=== PATIENT | female | born 1985 | race Caucasian/White ===

== ENCOUNTER 2018-12-20 08:11 | Emergency (ER) | payer OTHER ==
--- NOTE | 2018-12-20 09:14 | ED ---
GI/ HPI - HPI Summary HPI Summary: A 33 y/o female presents to [facility] with a chief complaint of heavy vaginal bleeding for the past two days. She reports that her period started one week ago and that it was light in the beginning but two days ago her bleeding became more heavy, She claims that this morning her pad was soaked and she was bleeding clots that ended up in the toilet and on her floor. She reports that her blood clots have been getting larger. She claims that on 11/29/18 she had an ultrasound at her OBGYN in [place] and was told that her lining was thick. She wanted to see her OBGYN again in three months because she wanted to try to make lifestyle changes before a biopsy. She reports losing 18 pounds this month. She denies abdominal pain, claiming that she isnt really cramping. Per triage note she also denies N/V but c/o weakness. At triage she rated her pain as a 0/10 in severity. She reports that one year ago her testosterone was high. She claims that she is familiar with a heavy period, but this is way heavier than usual. - History of Current Complaint Chief Complaint: EDVaginalBleeding Time Seen by Provider: 12/20/18 08:55 Stated Complaint: HEAVY VAGINAL BLEEDING WORSE THAN NORMAL PER PT Hx Obtained From: Patient Onset/Duration: Started Days Ago, Still Present Timing: Constant, Lasting Days Severity: Mild Current Severity: None Vaginal Bleeding Description: Clots Pain Intensity: 0 Location of Pain: None Associated Signs and Symptoms: Positive: Weakness. Negative: Nausea, Vomiting, Fever, Abdominal Pain - Allergy/Home Medications Allergies/Adverse Reactions: Allergies Allergy/AdvReac Type Severity Reaction Status Date / Time No Known Allergies Allergy Verified 12/20/18 08:17 Home Medications: Home Medications Multivitamin [One-Daily Multi-Vitamin] 1 tab PO DAILY 12/20/18 [History Confirmed 12/20/18] PMH/Surg Hx/FS Hx/Imm Hx Endocrine/Hematology History: Denies: Hx Diabetes Cardiovascular History: Denies: Hx Hypertension - Surgical History Surgery Procedure, Year, and Place: D&C 2016 Infectious Disease History: No Infectious Disease History: Denies: Traveled Outside the [place] in Last 30 Days - Family History Known Family History: Positive: Cardiac Disease - father, Hypertension - father Negative: Diabetes - Social History Alcohol Use: Occasionally Substance Use Type: Reports: None Smoking Status (MU): Never Smoked Tobacco Review of Systems Negative: Fever Negative: Abdominal Pain, Vomiting, Nausea Positive: other - positive: heavy vaginal bleeding All Other Systems Reviewed And Are Negative: Yes Physical Exam - Summary Physical Exam Summary: Appearance: The patient is well-nourished in no acute distress and in no acute pain. Skin: The skin is warm and dry and skin color reflects adequate perfusion. HEENT: The head is normocephalic and atraumatic. The pupils are equal and reactive. The conjunctivae are clear and without drainage. Nares are patent and without drainage. Mouth reveals moist mucous membranes and the throat is without erythema and exudate. The external ears are intact. The ear canals are patent and without drainage. The tympanic membranes are intact. Neck: The neck is supple with full range of motion and non-tender. There are no carotid bruits. There is no neck vein distension. Respiratory: Chest is non-tender. Lungs are clear to auscultation and breath sounds are symmetrical and equal. Cardiovascular: Heart is regular rate and rhythm. There is no murmur or rub auscultated. There is no peripheral edema and pulses are symmetrical and equal. Abdomen: The abdomen is soft and non-tender. There are normal bowel sounds heard in all four quadrants and there is no organomegaly palpated. Musculoskeletal: There is no back tenderness noted. Extremities are non-tender with full range of motion. There is good capillary refill. There is no peripheral edema or calf tenderness elicited. Neurological: Patient is alert and oriented to person, place and time. The patient has symmetrical motor strength in all four extremities. Cranial nerves are grossly intact. Deep tendon reflexes are symmetrical and equal in all four extremities. Psychiatric: The patient has an appropriate affect and does not exhibit any anxiety or depression. Triage Information Reviewed: Yes Vital Signs On Initial Exam: Initial Vitals Temp Pulse Resp BP Pulse Ox 97.5 F 102 18 139/94 100 12/20/18 08:12 12/20/18 08:12 12/20/18 08:12 12/20/18 08:12 12/20/18 08:12 Vital Signs Reviewed: Yes Diagnostics - Vital Signs Vital Signs Temp Pulse Resp BP Pulse Ox 12/20/18 09:01 84 145/101 100 12/20/18 09:00 83 97 12/20/18 08:42 95 99 12/20/18 08:12 97.5 F 102 18 139/94 100 - Laboratory Result Diagrams: 12/20/18 10:02 12/20/18 10:02 Lab Statement: Any lab studies that have been ordered have been reviewed, and results considered in the medical decision making process. Re-Evaluation - Re-Evaluation First Eval Re-Evaluation Time: 10:58 Change: Improved Comment: Informed patient of plan of follow up with Dr. Frank and the patient is agreeable. GIGU Course/Dx - Course Course Of Treatment: Ms. Thomas presented with a history of heavy dysmenorrhea but a concern that the last couple of days have been heavier than normal with multiple clots. She has seen a specialist up in [place] a few weeks ago. She was nontoxic in appearance is stable vital signs and labs were obtained and revealed no anemia. I spoke with up in [place] who recommended discharge and close follow-up. - Diagnoses Provider Diagnoses: Dysfunctional uterine bleeding - Physician Notifications Discussed Care Of Patient With: Debbie Frank MD Time Discussed With Above Provider: 10:58 Instructed by Provider To: Other - She agreed to have the patient follow up with her as an outpatient Discharge - Sign-Out/Discharge Documenting (check all that apply): Patient Departure - DC Patient Received Moderate/Deep Sedation with Procedure: No - Discharge Plan Condition: Stable Disposition: HOME Patient Education Materials: Dysfunctional Uterine Bleeding (ED) Referrals: Monika ZAVALA,Debbie French [Medical Doctor] - Elle ZAVALA,Mia Johnson [Primary Care Provider] - - Billing Disposition and Condition Condition: STABLE Disposition: Home - Attestation Statements Document Initiated by Scribe: Yes Documenting Scribe: Jose Kan Provider For Whom Alexia is Documenting (Include Credential): Nick Pérez MD Scribe Attestation: I, Jose Kan, scribed for Nick Pérez MD on 12/20/18 at 1358. Scribe Documentation Reviewed: Yes Provider Attestation: The documentation as recorded by the Jose hahn accurately reflects the service I personally performed and the decisions made by me, Nick Pérez MD Status of Scribe Document: Viewed
[2018-12-20 09:56] LABS: Urine Appearance Cloudy; Urine Bacteria Absent (Absent); Urine Bilirubin Negative (Negative); Urine Blood 3+ (Negative); Urine Color Red; Urine Glucose Negative (Negative); Urine Ketones 1+ (Negative); Urine Nitrite Negative (Negative); Urine Protein 2+(100 mg/dL) (Negative); Urine Red Blood Cell 3+(>10/hpf) (Absent); Urine Specific Gravity 1.024 (1.010-1.030); Urine Urobilinogen Negative (Negative); Urine White Blood Cell 1+(6-10/hpf) (Absent)
[2018-12-20 10:12] LABS: ABS Basophils 0.1 10^3/ul (0-0.2); ABS Eosinophils 0.1 10^3/ul (0-0.6); ABS Monocytes 0.7 10^3/ul (0-0.8); ABS Neutrophils 4.5 10^3/ul (1.5-7.7); ABS Nucleated RBC 0 10^3/ul; Eosinophil % 1.8 %; Hematocrit 38 % (33-41); Hemoglobin 12.4 g/dL (12.0-16.0); Lymphocyte % 27.3 %; Mean Corpuscular HGB Conc 33 g/dL (31-36); Mean Corpuscular Hemoglobin 27 pg (27-31); Mean Corpuscular Volume 83 fL (80-97); Mean Platelet Volume 7.9 fL (7.4-10.4); Nucleated Red Blood Cells % 0; Platelet Count 362 10^3/uL (150-450); Red Blood Count 4.53 10^6 /uL (3.70-4.87); Red Cell Distribution Width 15 % (10.5-15); White Blood Count 7.4 10^3/uL (3.5-10.8)
[2018-12-20 10:27] LABS: Activated Partial Thrombo Time 30.1 seconds (26.0-36.3); INR 1.02 (0.77-1.02)
[2018-12-20 10:38] LABS: ALT 28 U/L (7-52); AST 24 U/L (13-39); Albumin 4.2 g/dL (3.2-5.2); Albumin/Globulin Ratio 1.6 (1-3); Alkaline Phosphatase 70 U/L (34-104); Anion Gap 9 mmol/L (2-11); BUN/Creatinine Ratio 9.6 (8-20); Blood Urea Nitrogen 7 mg/dL (6-24); CO2 Carbon Dioxide 26 mmol/L (22-32); Calcium 9.1 mg/dL (8.6-10.3); Chloride 102 mmol/L (101-111); EGFR African American 110.4 (>60); EGFR Non-African American 91.3 (>60); Globulin 2.6 g/dL (2-4); Glucose 102 mg/dL (70-100); Potassium 3.8 mmol/L (3.5-5.0); Sodium 137 mmol/L (135-145); Total Protein 6.8 g/dL (6.4-8.9)
[2018-12-20 10:41] LABS: HCG Pregnancy < 0.60 mIU/mL
[2018-12-20 11:31] VITALS: BP 124/83
== END 2018-12-20 11:29 | disposition home or self-care (01) ==
LOC: ED 08:11
DX: N93.8 Other specified abnormal uterine and vaginal bleeding (principal); R53.1 Weakness
CPT/HCPCS: 36415; 80053; 81003; 81015; 83605; 84702; 85025; 85610; 85730; 87086; 99282

== ENCOUNTER 2019-05-31 08:13 | Emergency (ER) | payer OTHER ==
[2019-05-31 08:37] VITALS: BP 147/97
--- NOTE | 2019-05-31 10:09 | UC ---
Throat Pain/Nasal Sudarshan HPI - HPI Summary HPI Summary: 34 y/o female presents to the urgent care c/o sore throat and sinus congestion w / yellowish nasal discharge and moderate PND w/ productive cough for the past 2 days. Pt reports her children started w/ similar symptoms and were Rx antibiotics. Pt states last night she couldn't sleep due to cough and a lot of PND. This morning when she woke up she noticed her uvula was red and swollen. Pt states pain w/ swallowing is 4/10. Pt states subjective fever the first day. pt denies PONCE, dizziness, chest pain, abdominal pain, N/v/d. - History of Current Complaint Chief Complaint: UCGeneralIllness Stated Complaint: SORE THROAT COUGH RUNNY NOSE Time Seen by Provider: 05/31/19 09:13 Hx Obtained From: Patient Hx Last Menstrual Period: 05/11/19 ?: No Onset/Duration: Gradual Onset, Lasting Days - 2 days, Still Present Severity: Mild Pain Intensity: 4 Pain Scale Used: 0-10 Numeric Cough: Productive - yellowish PND Associated Signs & Symptoms: Positive: Sinus Discomfort, Nasal Discharge - yellowish, Fever - first day of symptoms. Negative: Dysphagia, Wheezing - Epiglottits Risk Factors Epiglottis Risk Factors: Negative - Allergies/Home Medications Allergies/Adverse Reactions: Allergies Allergy/AdvReac Type Severity Reaction Status Date / Time vancomycin Allergy Intermediate Flushing Verified 05/31/19 08:37 PMH/Surg Hx/FS Hx/Imm Hx Previously Healthy: Yes - Pt denies PMHX - Surgical History Surgical History: Yes Surgery Procedure, Year, and Place: D&C 2016 - Family History Known Family History: Positive: Cardiac Disease - father, Hypertension - father Negative: Diabetes - Social History Occupation: Employed Full-time Lives: With Family Alcohol Use: Occasionally Substance Use Type: None Smoking Status (MU): Never Smoked Tobacco Review of Systems All Other Systems Reviewed And Are Negative: Yes Constitutional: Positive: Chills Skin: Positive: Negative Eyes: Positive: Negative ENT: Positive: Sore Throat, Nasal Discharge - yellowish, Sinus Congestion, Sinus Pain/Tenderness, Other - moderate yellowish PND Respiratory: Positive: Cough - productive w/ yellowish phlegm Cardiovascular: Positive: Negative Gastrointestinal: Positive: Negative Genitourinary: Positive: Negative Motor: Positive: Negative Neurovascular: Positive: Negative Musculoskeletal: Positive: Negative Neurological: Positive: Negative Psychological: Positive: Negative Is Patient Immunocompromised?: No Physical Exam - Summary Physical Exam Summary: VITAL SIGNS: Reviewed. GENERAL: Patient is a well developed and nourished who is sitting comfortable in the examining table. Patient is not in any acute respiratory distress. HEAD AND FACE: No signs of trauma. No ecchymosis, hematomas or skull depressions. No sinus tenderness. EYES: PERRLA, EOMI x 2, No injected conjunctiva, no nystagmus. No photophobia. EARS: Hearing grossly intact. Ear canals and tympanic membranes are within normal limits. MOUTH: Positive pharynx with erythema, exudates, palatal petechiae. No tonsills. mildly swollen Uvula in midline w/ clear PND. NECK: Supple, trachea is midline, Positive anterior cervical lymphadenopathy, no JVD, no carotid bruit, no c-spine tenderness, neck with full ROM. No meningeal signs, no Kernig's or brudzinskis signs. CHEST: Symmetric, no tenderness at palpation LUNGS: Clear to auscultation bilaterally. No wheezing or crackles. CVS: Regular rate and rhythm, S1 and S2 present, no murmurs or gallops appreciated. ABDOMEN: Soft, non-tender. No signs of distention. No rebound no guarding, and no masses palpated. Bowel sounds are normal. EXTREMITIES: FROM in all major joints, no edema, no cyanosis or clubbing. NEURO: Alert and oriented x 3. No acute neurological deficits. Speech is normal and follows commands. SKIN: Dry and warm Triage Information Reviewed: Yes Vital Signs: Initial Vital Signs Temp 98.1 F 05/31/19 08:34 Pulse 89 05/31/19 08:34 Resp 18 05/31/19 08:34 BP 147/97 05/31/19 08:34 Pulse Ox 100 05/31/19 08:34 Throat Pain/Nasal Course/Dx - Course Course Of Treatment: 34 y/o female presents to the urgent care c/o sore throat and sinus congestion w / yellowish nasal discharge and moderate PND w/ productive cough for the past 2 days. Pt reports her children started w/ similar symptoms and were Rx antibiotics. Pt states last night she couldn't sleep due to cough and a lot of PND. This morning when she woke up she noticed her uvula was red and swollen. Pt states pain w/ swallowing is 4/10. Pt states subjective fever the first day. pt denies PONCE, dizziness, chest pain, abdominal pain, N/v/d. Hx obtained. Pt w/ uvulitis and URI on examination. Rapid strep: negative. Pt Rx Prednisone PO and Flonase Nasal spray to alleviate swelling and sinus congestion as directed below. PT Advised to take Ibuprofen PO for pain and on hand washing to avoid spreading. Also advised to rest, eat well and avoid strenuous exercise. If symptoms do not improve or worsen advised to return to the urgent care or f/u with her PCP in 2-3 days for further evaluation and treatment. Pt' s BP is elevated today advised to decrease salt in diet, monitor BP and f/u with PCP for further management. D/C instructions explained. PT understood and agreed w/ plan of care. - Differential Dx/Diagnosis Differential Diagnosis/HQI/PQRI: Influenza, Laryngitis, Mononucleosis, Otitis Media, Pharyngitis, Tonsillitis, URI Provider Diagnosis: Uvulitis, Upper respiratory infection, Elevated BP without diagnosis of hypertension Discharge ED - Sign-Out/Discharge Documenting (check all that apply): Patient Departure - d/c home All imaging exams completed and their final reports reviewed: No Studies - Discharge Plan Condition: Stable Disposition: HOME Prescriptions: Fluticasone NASAL SPRAY 50MCG* [Flonase NASAL SPRAY 50MCG*] 2 spray BOTH NARES DAILY #1 btl predniSONE TAB* [Deltasone 20 MG TAB*] 20 mg PO DAILY #11 tab Patient Education Materials: Upper Respiratory Infection (ED), Uvulitis (ED) Referrals: Miriam Bruno MD [Primary Care Provider] - 3 Days Additional Instructions: 1- Please Take prednisone PO as directed to alleviate swelling, increase fluid intake and rest. avid strenuous exercise 2-Use Flonase as directed to help drain fluid. Also buy saline drops to clear sinuses 3-Take Ibuprofen PO q6-8hrs prn as directed after meals to alleviate pain and swelling. 4-Return to the clinic or PCP in 3 days if symptoms do not improve for further management and treatment 5-Your BP is elevated today. Please take your BP medications and decrease salt in your diet, monitor BP and if it continues to be elevated please f/u with your PCP for further management. If you develop chest pain, dizziness, visual disturbances, SOB, or severe PONCE please go immediately to the ER for further management - Billing Disposition and Condition Condition: STABLE Disposition: Home
== END 2019-05-31 10:45 | disposition home or self-care (01) ==
LOC: UCEAST 08:13
DX: K12.2 Cellulitis and abscess of mouth (principal); J06.9 Acute upper respiratory infection, unspecified; R03.0 Elevated blood-pressure reading, without diagnosis of hypertension
CPT/HCPCS: 87651; 99212; G0463

== ENCOUNTER 2019-06-29 20:56 | Emergency (ER) | payer OTHER ==
[2019-06-29 21:06] VITALS: BP 153/92
--- NOTE | 2019-06-29 22:12 | UC ---
Complaint Female HPI - HPI Summary HPI Summary: FOR THE PAST COUPLE OF DAYS PATIENT HAS HAD A WORSENING PAINFUL LESION ON HER RIGHT LABIA MINORA. ON THE WAY HERE IT SPONTANEOUSLY DRAINED WHAT THE PATIENT DESCRIBES FOUL-SMELLING BLOOD AND PUS. SHE AND HER ARE TRYING TO CONCEIVE AND SHE IS VERY CONCERNED ABOUT INFECTION. NO URINARY SX BUT WOULD LIKE TO BE CHECK FOR UTI. - History Of Current Complaint Chief Complaint: UCSkin Stated Complaint: SORE ON SKIN Time Seen by Provider: 06/29/19 21:22 Hx Obtained From: Patient, Family/Chemistry Intern - Hx Last Menstrual Period: 06/12/19 Onset/Duration: Gradual Onset, Lasting Days, Still Present Timing: Constant Severity Initially: Moderate Severity Currently: Moderate Pain Intensity: 5 Pain Scale Used: 0-10 Numeric Character: Sharp Aggravating Factor(s): Other - TOUCH Alleviating Factor(s): Nothing Associated Signs And Symptoms: Negative: Fever, Vaginal Bleeding/Discharge, Nausea - Allergies/Home Medications Allergies/Adverse Reactions: Allergies Allergy/AdvReac Type Severity Reaction Status Date / Time vancomycin Allergy Intermediate Flushing Verified 06/29/19 21:06 Home Medications: Home Medications 105/Iron/Folic AC/Dha [Prena1 True Combo Pack] 1 tab PO DAILY 06/29/19 [History Confirmed 06/29/19] PMH/Surg Hx/FS Hx/Imm Hx Previously Healthy: Yes - Surgical History Surgical History: Yes Surgery Procedure, Year, and Place: T&A. appendectomy. D&C - Family History Known Family History: Positive: Cardiac Disease - father, Hypertension - father Negative: Diabetes - Social History Alcohol Use: Rare Substance Use Type: None Smoking Status (MU): Never Smoked Tobacco Review of Systems All Other Systems Reviewed And Are Negative: Yes Constitutional: Positive: Negative Skin: Positive: Other - PAINFUL GENITAL LESION Respiratory: Positive: Negative Cardiovascular: Positive: Negative Gastrointestinal: Positive: Negative Genitourinary: Positive: Negative Physical Exam Triage Information Reviewed: Yes Appearance: Well-Appearing, No Pain Distress, Well-Nourished Vital Signs: Initial Vital Signs Temp 98.8 F 06/29/19 20:59 Pulse 100 06/29/19 20:59 Resp 18 06/29/19 20:59 BP 153/92 06/29/19 20:59 Pulse Ox 99 06/29/19 20:59 Laboratory Tests 06/29/19 22:17 POC Urine Color Yellow POC Urine Clarity Clear POC Urine pH 7.5 POC Ur Specif Breeden 1.025 POC Urine Protein Trace A POC Ur Glucose (UA) Negative POC Urine Ketones Negative POC Urine Blood Trace-intact A POC Urine Nitrite Negative POC Urine Bilirubin Negative POC Urine Urobilinogen 0.2 POC U Leukocyte Esteras Trace A Vital Signs Reviewed: Yes Eyes: Positive: Conjunctiva Clear ENT: Positive: Hearing grossly normal Neck: Positive: Supple Respiratory: Positive: No respiratory distress, No accessory muscle use Cardiovascular: Positive: Pulses Normal Abdomen Description: Positive: Soft Pelvic Exam: Positive: Lesions - TENDER LESION EXTERNAL RIGHT LABIA MINORA < 1CM. DRAINING BLOOD Musculoskeletal: Positive: No Edema Neurological: Positive: Alert Psychological: Positive: Age Appropriate Behavior Skin: Negative: Rashes Complaint Female Dx - Course Course Of Treatment: LESION ON PATIENT'S RIGHT LABIA MINORA DRAINED SPONTANEOUSLY ON THE WAY HERE TO THE URGENT CARE. ON EXAM IT DOES NOT APPEAR TO BE A BARTHOLIN'S. SWAB SENT FOR CULTURE. WILL GIVE KEFLEX TWICE DAILY FOR 10 DAYS. 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 URINE DIP UNREMARKABLE. ALSO SENT FOR CULTURE. PT DECLINES URINE HCG. - Differential Dx/Diagnosis Provider Diagnosis: Abscess of right genital labia Discharge ED - Sign-Out/Discharge Documenting (check all that apply): Patient Departure All imaging exams completed and their final reports reviewed: No Studies - Discharge Plan Condition: Stable Disposition: HOME Prescriptions: Cephalexin CAP* [Keflex 500 CAP*] 500 mg PO BID #18 cap Patient Education Materials: Abscess (ED) Referrals: Miriam Bruno MD [Primary Care Provider] - If Needed Additional Instructions: ON EXAM YOU HAVE AN ABSCESS OF YOUR RIGHT LABIA MINORA. THIS DRAINED SPONTANEOUSLY ON YOUR WAY HERE. TAKE THE KEFLEX TWICE DAILY FOR 10 DAYS. A CULTURE HAS BEEN SENT AND WE WILL CALL YOU IF YOUR MEDICATION NEEDS TO BE CHANGED. HOT SOAKS 3-4 TIMES DAILY. KEEP THE AREA CLEAN AND DRY. SEEK FOLLOW-UP IF YOU ARE NOT IMPROVING OVER THE NEXT SEVERAL DAYS. - Billing Disposition and Condition Condition: STABLE Disposition: Home
[2019-06-29] MEDS ORDERED: Cephalexin CAP* 500 MG PO ONE (22:16)
== END 2019-06-29 22:41 | disposition home or self-care (01) ==
LOC: UCEAST 20:56
DX: N76.4 Abscess of vulva (principal); Z88.1 Allergy status to other antibiotic agents
CPT/HCPCS: 81003; 87070; 87077; 87086; 99212; A9270-GY; G0463

== ENCOUNTER 2019-09-06 17:05 | Emergency (ER) | payer OTHER ==
[2019-09-06 18:59] LABS: ABS Basophils 0.1 10^3/ul (0-0.2); ABS Eosinophils 0.2 10^3/ul (0-0.6); ABS Lymphocytes 3.3 10^3/ul (1.0-4.8); ABS Monocytes 1.3 10^3/ul (0-0.8); ABS Neutrophils 11.4 10^3/ul (1.5-7.7); Eosinophil % 1.1 %; Hematocrit 41 % (35-47); Hemoglobin 13.7 g/dL (12.0-16.0); Lymphocyte % 20.5 %; Mean Corpuscular HGB Conc 33 g/dL (31-36); Mean Corpuscular Hemoglobin 29 pg (27-31); Mean Corpuscular Volume 87 fL (80-97); Mean Platelet Volume 7.7 fL (7.4-10.4); Platelet Count 418 10^3/uL (150-450); Red Blood Count 4.76 10^6 /uL (3.70-4.87); Red Cell Distribution Width 14 % (10-15); White Blood Count 16.3 10^3/uL (3.5-10.8)
[2019-09-06 19:13] LABS: ALT 15 U/L (7-52); AST 11 U/L (13-39); Albumin/Globulin Ratio 1.3 (1-3); Alkaline Phosphatase 64 U/L (34-104); Anion Gap 7 mmol/L (2-11); BUN/Creatinine Ratio 16.7 (8-20); Blood Urea Nitrogen 13 mg/dL (6-24); C Reactive Protein 13.47 mg/L (<8.01); CO2 Carbon Dioxide 25 mmol/L (22-32); Calcium 9.4 mg/dL (8.6-10.3); Chloride 104 mmol/L (101-111); EGFR African American 101.7 (>60); Globulin 3.2 g/dL (2-4); Glucose 99 mg/dL (70-100); Potassium 3.8 mmol/L (3.5-5.0); Sodium 136 mmol/L (135-145); Total Protein 7.2 g/dL (6.4-8.9)
--- NOTE | 2019-09-06 22:19 | ED ---
Shortness of Breath - HPI Summary HPI Summary: This pt is a 34 Y/O F presenting to [facility] with a CC of SOB that has been occurring since 09/04/19 when she sleeps. She states that after she falls asleep she has episodes of gasping for air and she has been unable to sleep. She states that last night when she was sitting on the couch she became SOB. She states that a week and a half ago she had one episode of gasping for air. She states that she had similar symptoms when she was diagnosed with bronchitis. She denies any fevers, cough, headaches, CP, and N/V. She states no alleviating factors. Her last period was August 07 and states that she is currently . Her GPA is a G4, P2, A1. She is currently at 4 weeks gestation. She states that her fathers side has a Hx of heart attacks and her mother has sleep apnea. - History of Current Complaint Chief Complaint: EDShortnessOfBreath Time Seen by Provider: 09/06/19 21:54 Hx Obtained From: Patient Onset/Duration: Sudden Onset, Lasting Days - 2, Still Present Timing: Intermittent Episodes Lasting: - States that the episodes occurr when she falls asleep Current Severity: None Dyspnea At: Other - sleeping Aggravating Factors: Recumbent Position Alleviating Factors: Nothing Associated Signs & Symptoms: Negative - fevers, cough, headaches, CP, and N/V. - Allergy/Home Medications Allergies/Adverse Reactions: Allergies Allergy/AdvReac Type Severity Reaction Status Date / Time vancomycin Allergy Intermediate Flushing Verified 06/29/19 21:06 PMH/Surg Hx/FS Hx/Imm Hx Previously Healthy: Yes Endocrine/Hematology History: Denies: Hx Diabetes, Hx Thyroid Disease Cardiovascular History: Denies: Hx Hypertension Respiratory History: Denies: Hx Asthma, Hx Chronic Obstructive Pulmonary Disease (COPD) GI History: Denies: Hx Ulcer - Cancer History Hx Chemotherapy: No Hx Radiation Therapy: No - Surgical History Surgical History: Yes Surgery Procedure, Year, and Place: T&A. appendectomy. D&C - Immunization History Immunizations Up to Date: Yes Infectious Disease History: No Infectious Disease History: Denies: Hx Hepatitis, Hx Human Immunodeficiency Virus (HIV), Traveled Outside the [place] in Last 30 Days - Family History Known Family History: Positive: Cardiac Disease - father, Hypertension - father Negative: Diabetes - Social History Occupation: Unemployed Lives: With Family Alcohol Use: Rare Hx Substance Use: No Substance Use Type: Reports: None Hx Tobacco Use: No Smoking Status (MU): Never Smoked Tobacco Review of Systems - ROS Summary Review of Systems Summary: Home Medications Medication Instructions Recorded Confirmed Type Cephalexin CAP* [Keflex 500 CAP*] 500 mg PO BID #18 cap 06/29/19 Rx 105/Iron/Folic AC/Dha 1 tab PO DAILY 06/29/19 06/29/19 History [Prena1 True Combo Pack] Negative: Fever Negative: Chest Pain Positive: Shortness Of Breath - while sleeping . Negative: Cough Negative: Vomiting, Nausea Negative: Headache All Other Systems Reviewed And Are Negative: Yes Physical Exam - Summary Physical Exam Summary: General: Well-developed, obese female. No acute distress. HEENT: Normocephalic, Atraumatic. Eyes: Conjuctiva normal, PERRL. Ears: TMs within normal limits. Nares: (-) discharge, (-) erythema. Oropharynx: Clear, mucous membranes moist, (-) exudates. Neck: Soft, FROM, (-) lymphadenopathy, (-) thyromegaly, (-) JVD. Cardiovascular: Normal sinus rhythm, (-) murmur. Lungs: Clear to auscultation bilaterally (-) wheezes, (-) rales, (-) rhonchi. Abdomen: Soft, non-tender, non-distended, (-) organomegaly, normal bowel sounds. Back: (-) CVA tenderness Extremities: No edema. Skin: Warm, dry, (-) rash. Neuro: Alert and oriented x3, no focal deficits. Psychiatric: anxious. affect normal. Triage Information Reviewed: Yes Vital Signs On Initial Exam: Initial Vitals Temp Pulse Resp BP Pulse Ox 97.5 F 96 18 128/104 100 09/06/19 17:12 09/06/19 17:12 09/06/19 17:12 09/06/19 17:12 09/06/19 17:12 Vital Signs Reviewed: Yes Procedures - Sedation Patient Received Moderate/Deep Sedation with Procedure: No Diagnostics - Vital Signs Vital Signs Temp Pulse Resp BP Pulse Ox 09/06/19 21:15 99.2 F 93 18 137/74 98 09/06/19 19:00 98.7 F 98 18 135/88 98 09/06/19 17:12 97.5 F 96 18 128/104 100 - Laboratory Lab Results: Lab Results 09/06/19 09/06/19 09/06/19 Range/Units 18:40 18:40 18:40 WBC 16.3 H (3.5-10.8) 10^3/uL RBC 4.76 (3.70-4.87) 10^6 /uL Hgb 13.7 (12.0-16.0) g/dL Hct 41 (35-47) % MCV 87 (80-97) fL MCH 29 (27-31) pg MCHC 33 (31-36) g/dL RDW 14 (10-15) % Plt Count 418 (150-450) 10^3/uL MPV 7.7 (7.4-10.4) fL Neut % (Auto) 69.8 % Lymph % (Auto) 20.5 % [place] % (Auto) 8.0 % Eos % (Auto) 1.1 % Baso % (Auto) 0.6 % Absolute Neuts (auto) 11.4 H (1.5-7.7) 10^3/ul Absolute Lymphs (auto) 3.3 (1.0-4.8) 10^3/ul Absolute Monos (auto) 1.3 H (0-0.8) 10^3/ul Absolute Eos (auto) 0.2 (0-0.6) 10^3/ul Absolute Basos (auto) 0.1 (0-0.2) 10^3/ul Absolute Nucleated RBC 0.0 10^3/ul Nucleated RBC % 0.0 Sodium 136 (135-145) mmol/L Potassium 3.8 (3.5-5.0) mmol/L Chloride 104 (101-111) mmol/L Carbon Dioxide 25 (22-32) mmol/L Anion Gap 7 (2-11) mmol/L BUN 13 (6-24) mg/dL Creatinine 0.78 (0.51-0.95) mg/dL Est GFR ( Amer) 101.7 (>60) Est GFR (Non-Af Amer) 84.0 (>60) BUN/Creatinine Ratio 16.7 (8-20) Glucose 99 (70-100) mg/dL Lactic Acid 1.0 (0.5-2.0) mmol/L Calcium 9.4 (8.6-10.3) mg/dL Total Bilirubin 0.20 (0.2-1.0) mg/dL AST 11 L (13-39) U/L ALT 15 (7-52) U/L Alkaline Phosphatase 64 (34-104) U/L Troponin I 0.00 (<0.03) ng/mL C-Reactive Protein 13.47 H (<8.01) mg/L Total Protein 7.2 (6.4-8.9) g/dL Albumin 4.0 (3.2-5.2) g/dL Globulin 3.2 (2-4) g/dL Albumin/Globulin Ratio 1.3 (1-3) Beta HCG, Quant mIU/mL Blood Type Antibody Screen 09/06/19 09/06/19 Range/Units 18:40 18:40 WBC (3.5-10.8) 10^3/uL RBC (3.70-4.87) 10^6 /uL Hgb (12.0-16.0) g/dL Hct (35-47) % MCV (80-97) fL MCH (27-31) pg MCHC (31-36) g/dL RDW (10-15) % Plt Count (150-450) 10^3/uL MPV (7.4-10.4) fL Neut % (Auto) % Lymph % (Auto) % [place] % (Auto) % Eos % (Auto) % Baso % (Auto) % Absolute Neuts (auto) (1.5-7.7) 10^3/ul Absolute Lymphs (auto) (1.0-4.8) 10^3/ul Absolute Monos (auto) (0-0.8) 10^3/ul Absolute Eos (auto) (0-0.6) 10^3/ul Absolute Basos (auto) (0-0.2) 10^3/ul Absolute Nucleated RBC 10^3/ul Nucleated RBC % Sodium (135-145) mmol/L Potassium (3.5-5.0) mmol/L Chloride (101-111) mmol/L Carbon Dioxide (22-32) mmol/L Anion Gap (2-11) mmol/L BUN (6-24) mg/dL Creatinine (0.51-0.95) mg/dL Est GFR ( Amer) (>60) Est GFR (Non-Af Amer) (>60) BUN/Creatinine Ratio (8-20) Glucose (70-100) mg/dL Lactic Acid (0.5-2.0) mmol/L Calcium (8.6-10.3) mg/dL Total Bilirubin (0.2-1.0) mg/dL AST (13-39) U/L ALT (7-52) U/L Alkaline Phosphatase (34-104) U/L Troponin I (<0.03) ng/mL C-Reactive Protein (<8.01) mg/L Total Protein (6.4-8.9) g/dL Albumin (3.2-5.2) g/dL Globulin (2-4) g/dL Albumin/Globulin Ratio (1-3) Beta HCG, Quant 68.99 mIU/mL Blood Type A Positive Antibody Screen Negative Result Diagrams: 09/06/19 18:40 09/06/19 18:40 Lab Statement: Any lab studies that have been ordered have been reviewed, and results considered in the medical decision making process. Course/Dx - Course Course Of Treatment: 34-year-old female at 4 weeks' gestation presents with some strange sensations of difficulty catching her breath. Happens when she is trying to sleep. Doesn't matter if she is sitting or laying down. Never had this before. Just diagnosed as currently . She has 2 healthy children. Her last delivered early despite a normal ultrasound the same day. Patient was seen by urgent care for these symptoms and was advised to be tested for sleep apnea. Patient states she is exhausted as she cannot sleep because of this. She does have a history of thyroid nodules but TSH is normal today during workup. All workup is essentially negative. Discussed possible etiologies of her symptoms with patient. Advised her to try Benadryl to help her sleep. Plenty of fluids. Follow-up with OB/ STAFF DEVELOPMENT EDUCATOR. Follow-up sooner for any worsening symptoms. - Diagnoses Provider Diagnoses: SOB (shortness of breath) Discharge ED - Sign-Out/Discharge Documenting (check all that apply): Patient Departure - discharge - Discharge Plan Condition: Stable Disposition: HOME Patient Education Materials: Shortness of Breath (ED) Referrals: Miriam Bruno MD [Primary Care Provider] - 2 Days Additional Instructions: PLEASE FOLLOW UP WITH YOUR PRIMARY CARE PROVIDER IN 1-3 DAYS AND RETURN TO THE EMERGENCY DEPARTMENT FOR ANY NEW OR WORSENING SYMPTOMS. - Billing Disposition and Condition Condition: STABLE Disposition: Home - Attestation Statements Document Initiated by Alexia: Yes Documenting Scribe: Oren Bernal Provider For Whom Alexia is Documenting (Include Credential): Nuha Brumfield MD Scribe Attestation: Oren Rodgers, scribed for Nuha Brumfield MD on 09/07/19 at 2024. Scribe Documentation Reviewed: Yes Provider Attestation: The documentation as recorded by the Oren hahn accurately reflects the service I personally performed and the decisions made by , Nuha Brumfield MD Status of Scribe Document: Viewed
[2019-09-06] MEDS ORDERED: Albuterol/Ipratropium NEB.SOL* Albuterol 2.5 MG/Ipratropium 0.5 MG 3 ML INH ONE (22:25)
[2019-09-07 01:16] VITALS: BP 135/71
== END 2019-09-07 00:20 | disposition home or self-care (01) ==
LOC: ED 17:05
DX: O26.891 Other specified pregnancy related conditions, first trimester (principal); R06.02 Shortness of breath; Z3A.01 Less than 8 weeks gestation of pregnancy; Z88.1 Allergy status to other antibiotic agents
CPT/HCPCS: 36415; 80053; 83605; 84443; 84484; 84702; 85025; 86140; 86850; 86900; 86901; 99282; A9270-GY

== ENCOUNTER → 2019-10-07 09:48 | Emergency (ER) | payer OTHER ==
[~2019-10-07 09:48] MED LIST: Acetaminophen TAB* 325 MG PO ONE; Ketorolac INJ* 30 MG/ML 1 ML VIAL IV PUSH ONE
--- NOTE | 2019-10-07 10:48 | ED ---
Abdominal Pain/Female - HPI Summary HPI Summary: 34 y/o female presented to [facility] complaining of constant cramping suprapubic pain present since this morning. She notes that this pain is not similar to the usual pain she has experienced before. At rest, the pain is rated 2/ 10 in severity, but it is aggravated with ambulation. She denies vaginal bleeding or discharge. Her LNMP was 08/07/19. She saw her CHIEF PAYROLL CLERK, Dr. Arceo in [place], on 09/30/19 and has an US scheduled in one week. Pt is on Metrogel for bacterial vaginosis. - History of Current Complaint Chief Complaint: EDOBProblems Stated Complaint: 8 WEEKS PREG/CRAMPING PER PT Time Seen by Provider: 10/07/19 10:37 Hx Obtained From: Patient Hx Last Menstrual Period: 08/07/19 ?: Yes - 8.5 weeks Onset/Duration: Lasting Hours, Still Present Timing: Constant Severity Initially: Moderate Severity Currently: Mild Pain Intensity: 2 Pain Scale Used: 0-10 Numeric Location: Suprapubic Radiates: No Character: Cramping Aggravating Factor(s): Other: - ambulation Alleviating Factor(s): Other: - rest Associated Signs and Symptoms: Negative: Vaginal Bleeding, Vaginal Discharge Allergies/Adverse Reactions: Allergies Allergy/AdvReac Type Severity Reaction Status Date / Time vancomycin Allergy Intermediate Flushing Verified 10/07/19 09:53 Home Medications: Home Medications metroNIDAZOLE [Metrogel] 1 applic TOPICAL DAILY 10/07/19 [History Confirmed 03/21] PMH/Surg Hx/FS Hx/Imm Hx Endocrine/Hematology History: Denies: Hx Diabetes, Hx Thyroid Disease Cardiovascular History: Denies: Hx Hypertension Respiratory History: Denies: Hx Asthma, Hx Chronic Obstructive Pulmonary Disease (COPD) GI History: Denies: Hx Ulcer - Cancer History Hx Chemotherapy: No Hx Radiation Therapy: No - Surgical History Surgical History: Yes Surgery Procedure, Year, and Place: T&A. appendectomy. D&C - Immunization History Date of Influenza Vaccine: 2018 Immunizations Up to Date: Yes Infectious Disease History: No Infectious Disease History: Denies: Hx Hepatitis, Hx Human Immunodeficiency Virus (HIV), Traveled Outside the [place] in Last 30 Days - Family History Known Family History: Positive: Cardiac Disease - father, Hypertension - father Negative: Diabetes - Social History Alcohol Use: Rare Hx Substance Use: No Substance Use Type: Reports: None Hx Tobacco Use: No Smoking Status (MU): Never Smoked Tobacco Review of Systems Positive: Abdominal Pain - cramping Negative: discharge, other - bleeding All Other Systems Reviewed And Are Negative: Yes Physical Exam - Summary Physical Exam Summary: Appearance: The patient is well-nourished in no acute distress and in no acute pain. Skin: The skin is warm and dry, and skin color reflects adequate perfusion. HEENT: The head is normocephalic and atraumatic. The pupils are equal and reactive. The conjunctivae are clear and without drainage. Nares are patent and without drainage. Mouth reveals moist mucous membranes, and the throat is without erythema and exudate. The external ears are intact. The ear canals are patent and without drainage. The tympanic membranes are intact. Neck: The neck is supple with full range of motion and non-tender. There are no carotid bruits. There is no neck vein distension. Respiratory: Chest is non-tender. Lungs are clear to auscultation and breath sounds are symmetrical and equal. Cardiovascular: Heart is regular rate and rhythm. There is no murmur or rub auscultated. There is no peripheral edema and pulses are symmetrical and equal. Abdomen: The abdomen is soft with mild suprapubic tenderness. There are normal bowel sounds heard in all four quadrants and there is no organomegaly palpated. Musculoskeletal: There is no back tenderness noted. Extremities are non-tender with full range of motion. There is good capillary refill. There is no peripheral edema or calf tenderness elicited. Neurological: Patient is alert and oriented to person, place and time. The patient has symmetrical motor strength in all four extremities. Cranial nerves are grossly intact. Deep tendon reflexes are symmetrical and equal in all four extremities. Psychiatric: The patient has an appropriate affect and does not exhibit any anxiety or depression. Triage Information Reviewed: Yes Vital Signs On Initial Exam: Initial Vitals Temp Pulse Resp BP Pulse Ox 97.3 F 112 19 159/102 99 10/07/19 09:50 10/07/19 09:50 10/07/19 09:50 10/07/19 09:50 10/07/19 09:50 Vital Signs Reviewed: Yes Procedures - Sedation Patient Received Moderate/Deep Sedation with Procedure: No Diagnostics - Vital Signs Vital Signs Temp Pulse Resp BP Pulse Ox 10/07/19 10:41 101 136/97 99 10/07/19 09:50 97.3 F 112 19 159/102 99 - Laboratory Result Diagrams: 10/07/19 10:50 10/07/19 10:50 Lab Statement: Any lab studies that have been ordered have been reviewed, and results considered in the medical decision making process. - Ultrasound Transvaginal US Ultrasound Interpretation Completed By: Radiologist Summary of Ultrasound Findings: IMPRESSION: 1. Solitary intrauterine gestation with estimated gestational age of 7 weeks 6 days based on crown-rump length. Normal cardiac activity. 2. 3.3 cm probable corpus luteum cyst at the LEFT ovary. This report was reviewed by the ED physician. Venous Doppler RLE Ultrasound Interpretation Completed By: Radiologist Summary of Ultrasound Findings: IMPRESSION: NO RIGHT LOWER EXTREMITY DEEP VEIN THROMBOSIS. This report was reviewed by the ED physician. Re-Evaluation - Re-Evaluation First Eval Re-Evaluation Time: 14:50 Comment: Patient experiencing right thigh pain, will order venous doppler Second Eval Re-Evaluation Time: 16:30 Comment: We discussed all results and plan for discharge. Abdominal Pain Fem Course/Dx - Course Course Of Treatment: Ms. Thomas was nontoxic in appearance with stable vitals on arrival but clearly in pain. She had suprapubic tenderness only labs were obtained and revealed a leukocytosis of 13.5 which is nonspecific. Her quantitative hCG was 60,000 and a transvaginal ultrasound was obtained. This revealed an approximately 8 week IUP with the 160 heart tones. There is no mention of dilation of the cervix. There was also a 3.3 cm left ovarian cyst. Nothing dangerous seems be happening at this point. The patient may be having cramping from her bacterial vaginosis that she was previously diagnosed with or from the use of the MetroGel. I spoke with the patient and she was not satisfied with the explanation. She requested a pelvic exam to see if her os was dilated. I explained that this was not necessary and would not add to the information. I did however offered to call her CHIEF PAYROLL CLERK doctor in [place] Dr. Gordillo. I spoke with Dr. Domínguez cement conveyor operator for her. She was encouraged that the baby was growing up correct rate based on the ultrasound done in the office a week or so ago. The patient had requested progesterone and Dr. Domínguez did not fill it was appropriate as she was not bleeding. I asked about changing to Clindagel or by mouth Flagyl or clindamycin. She did not want to change at this time. I reiterated all this to the patient and she was still not satisfied and wanted an CHIEF PAYROLL CLERK consult. I did speak with Dr. Rosa who agreed to follow the patient in his office but agreed that there was not much that she could add by coming to the ED. Subsequent conversation with the patient she revealed that she had some pain in her right leg yesterday. I agreed to get an ultrasound to rule out a DVT although I cannot imagine how this could be related. Ultrasound was negative for DVT and the patient was discharged to follow up with her CHIEF PAYROLL CLERK. - Diagnoses Provider Diagnoses: Threatened miscarriage - Provider Notifications Discussed Care Of Patient With: Jazmine Maddox Time Discussed With Above Provider: 13:35 Instructed by Provider To: Other - Pt case was discussed with Dr. Maddox, who did not recommend progesterone and noted that the baby seems to have a normal growth pattern since an US last week. At 14:07 Dr. Maddox recommended the pt stay on Metrogel as she has not finished the course yet. Discharge ED - Sign-Out/Discharge Documenting (check all that apply): Patient Departure - dc - Discharge Plan Condition: Stable Disposition: HOME Patient Education Materials: Threatened Miscarriage (ED) Referrals: Miriam Bruno MD [Primary Care Provider] - Monika ZAVALA,Debbie French [Medical Doctor] - 3 Days Additional Instructions: Follow up with Dr. Arceo in 1-3 days. If you experience new or worsening symptoms please return to the ER. - Billing Disposition and Condition Condition: STABLE Disposition: Home - Attestation Statements Document Initiated by Alexia: Yes Documenting Scribe: Avani Santos Provider For Whom Alexia is Documenting (Include Credential): Nick Pérez MD Scribe Attestation: Avani Rodgers, scribed for Nick Pérez MD on 10/07/19 at 1903. Scribe Documentation Reviewed: Yes Provider Attestation: The documentation as recorded by the Avani hahn accurately reflects the service I personally performed and the decisions made by me, Nick Pérez MD Status of Scribe Document: Viewed
[2019-10-07 11:04] LABS: ABS Basophils 0.1 10^3/ul (0-0.2); ABS Eosinophils 0.2 10^3/ul (0-0.6); ABS Lymphocytes 2.4 10^3/ul (1.0-4.8); ABS Monocytes 1.1 10^3/ul (0-0.8); Eosinophil % 1.1 %; Hematocrit 41 % (35-47); Hemoglobin 13.7 g/dL (12.0-16.0); Lymphocyte % 17.7 %; Mean Corpuscular HGB Conc 34 g/dL (31-36); Mean Corpuscular Hemoglobin 29 pg (27-31); Mean Corpuscular Volume 87 fL (80-97); Platelet Count 375 10^3/uL (150-450); Red Blood Count 4.68 10^6 /uL (3.70-4.87); Red Cell Distribution Width 14 % (10-15); White Blood Count 13.8 10^3/uL (3.5-10.8)
[2019-10-07 11:22] LABS: Albumin/Globulin Ratio 1.3 (1-3); BUN/Creatinine Ratio 14.1 (8-20); C Reactive Protein 17.11 mg/L (<8.01); Calcium 9.4 mg/dL (8.6-10.3); EGFR African American 113.4 (>60); EGFR Non-African American 93.7 (>60); Globulin 3.2 g/dL (2-4); Potassium 3.9 mmol/L (3.5-5.0); Total Bilirubin 0.2 mg/dL (0.2-1.0); Total Protein 7.2 g/dL (6.4-8.9)
[2019-10-07 13:06] LABS: Urine Appearance Cloudy; Urine Bilirubin Negative (Negative); Urine Blood Negative (Negative); Urine Color Yellow; Urine Glucose Negative (Negative); Urine Ketones Trace (Negative); Urine Nitrite Negative (Negative); Urine Protein Negative (Negative); Urine Specific Gravity 1.021 (1.010-1.030); Urine Urobilinogen Negative (Negative)
[2019-10-07 13:12] LABS: Urine Bacteria Absent (Absent); Urine Red Blood Cell Trace(0-2/hpf) (Absent); Urine Squamous Epithelial Cell Present (Absent); Urine White Blood Cell Trace(0-5/hpf) (Absent)
[2019-10-07 16:38] VITALS: BP 147/93
== END | disposition home or self-care (01) ==
LOC: ED 09:48
DX: O20.0 Threatened abortion (principal); N83.202 Unspecified ovarian cyst, left side; M79.651 Pain in right thigh; Z3A.01 Less than 8 weeks gestation of pregnancy; Z88.1 Allergy status to other antibiotic agents
CPT/HCPCS: 36415; 76817; 80053; 81003; 81015; 83605; 83690; 84702; 85025; 86140; 87086; 99284; A9270-GY

== ENCOUNTER 2019-11-21 00:19 | Emergency (ER) | payer OTHER ==
--- NOTE | 2019-11-21 01:05 | ED ---
- HPI Summary HPI Summary: 34-year-old female of approximately 15 weeks gestation presents to the emergency department today complaining of "low vaginal/ cervical sharp pain X4 episodes which began approximately one hour ago. The patient states these painful episodes occur with movement especially with bending over. Patient is concerned as she had a miscarriage at 15 weeks with her previous child due to incompetent cervix. thus far has been uncomplicated with normal routine ultrasounds. Patient denies vaginal bleeding. Patient denies fever, chest pain, abdominal pain, shortness of breath, rash. Patient denies recent recreational drug use or alcohol use. - History of Current Complaint Chief Complaint: EDAbdPain Stated Complaint: 15 WKS PREG ABD PAIN PER EMS Time Seen by Provider: 11/21/19 00:47 Hx Obtained From: Patient Chief Complaint: Pain Onset/Duration: Started Hours Ago Timing: Intermittent, Lasting Seconds Severity: Moderate Current Severity: None Pain Intensity: 0 Location of Pain: Other: - "cervical" Character: Sharp Aggravating Factors: Movement Associated Signs and Symptoms: Negative: Vaginal Bleeding or Discharge - Assessment Hx Now: - they are trying - Allergies/Home Medications Allergies/Adverse Reactions: Allergies Allergy/AdvReac Type Severity Reaction Status Date / Time vancomycin Allergy Intermediate Flushing Verified 10/07/19 09:53 Home Medications: Home Medications 105/Iron/Folic AC/Dha [Prena1 True Combo Pack] 1 tab PO DAILY 06/29/19 [History Confirmed 11/21/19] PMH/Surg Hx/FS Hx/Imm Hx Endocrine/Hematology History: Denies: Hx Diabetes, Hx Thyroid Disease Cardiovascular History: Denies: Hx Hypertension Respiratory History: Denies: Hx Asthma, Hx Chronic Obstructive Pulmonary Disease (COPD) GI History: Denies: Hx Ulcer - Cancer History Hx Chemotherapy: No Hx Radiation Therapy: No - Surgical History Surgery Procedure, Year, and Place: T&A. appendectomy. D&C - Immunization History Date of Influenza Vaccine: 2019 Immunizations Up to Date: Yes Infectious Disease History: No Infectious Disease History: Denies: Hx Hepatitis, Hx Human Immunodeficiency Virus (HIV), Traveled Outside the [place] in Last 30 Days - Family History Known Family History: Positive: Cardiac Disease - father, Hypertension - father Negative: Diabetes - Social History Alcohol Use: Rare Hx Substance Use: No Substance Use Type: Reports: None Hx Tobacco Use: No Smoking Status (MU): Never Smoked Tobacco Review of Systems Constitutional: Negative Eyes: Negative ENT: Negative Cardiovascular: Negative Respiratory: Negative Gastrointestinal: Negative Genitourinary: Negative Musculoskeletal: Negative Skin: Negative Neurological/Mental Status: Negative Psychological: Normal All Other Systems Reviewed And Are Negative: Yes Physical Exam - Summary Physical Exam Summary: Patient is in no acute distress. Inspection of the abdomen reveals no masses or ecchymosis. Bedside ultrasound was done which showed heart rate of approximately 160 bpm. Pelvic exam was done with ER Nurse at bedside. No evidence of vaginal trauma or lesions. No discharge or vaginal bleeding noted. No cervical motion tenderness or dilation. - Physical Exam Triage Information Reviewed: Yes Vital Signs Reviewed: Yes Appearance: Positive: Well-Appearing, No Pain Distress, Well-Nourished, Obese Skin: Positive: Warm, Skin Color Reflects Adequate Perfusion Eyes: Positive: EOMI, RADHA ENT: Positive: Hearing grossly normal Respiratory/Lung Sounds: Positive: Clear to Auscultation, Breath Sounds Present Cardiovascular: Positive: RRR, S1, S2 Abdomen Description: Positive: Nontender, Soft Bowel Sounds: Positive: Present Pelvic Exam: Speculum Exam Normal, No Cerv. Motion Tender Musculoskeletal: Positive: Strength/ROM Intact Neurological: Positive: Sensory/Motor Intact, Alert, Oriented to Person Place, Time, Normal Gait, Speech Normal Psychiatric: Positive: Normal, Affect/Mood Appropriate AVPU Assessment: Alert Procedures - Sedation Patient Received Moderate/Deep Sedation with Procedure: No Diagnostics - Vital Signs Vital Signs Temp Pulse Resp BP Pulse Ox 11/21/19 00:31 98.1 F 87 22 133/88 98 - Laboratory Lab Statement: Any lab studies that have been ordered have been reviewed, and results considered in the medical decision making process. Course/Dx - Course Course Of Treatment: Patient was evaluated in the emergency department today for abdominal pain. Vitals noted and stable. Urinalysis negative for UTI however this appears contaminated. Bedside ultrasound was done which showed appropriate heart rate at approximately 160 bpm with no other obvious signs of trauma. Pelvic exam was done which showed no vaginal lesions, vaginal discharge, no cervical motion tenderness or cervical dilation. Patient's symptoms appear to be benign and not threatening for miscarriage at this time due to lack of vaginal bleeding, adequate heart beat, lack of cervical dilation. Dr. Brumfield, emergency room physician attending was consulted during this case who agreed there is no acute medical problem requiring intervention at this time. Patient discharged with an appointment this date for ultrasound and further evaluation and management with her x ray service technician. - Differential Diagnosis/HQI/PQRI: Other: - Miscarriage, musculoskeletal pain - Diagnoses Provider Diagnoses: Abdominal pain Discharge ED - Sign-Out/Discharge Documenting (check all that apply): Patient Departure - Discharge Plan Condition: Stable Disposition: HOME Patient Education Materials: Abdominal Pain in (ED) Referrals: Miriam Bruno MD [Primary Care Provider] - Chepe Mireles JR, DO [Doctor of Osteopathy] - 1 Day Additional Instructions: Please follow-up with your x ray service technician in [place] today for further evaluation and management. Please return to the emergency department immediately if you develop any new or worsening symptoms such as vaginal bleeding, increased abdominal pain. - Billing Disposition and Condition Condition: STABLE Disposition: Home
[2019-11-21 02:29] LABS: Urine Appearance Cloudy; Urine Bilirubin Negative (Negative); Urine Blood Negative (Negative); Urine Color Straw; Urine Glucose Negative (Negative); Urine Ketones Negative (Negative); Urine Nitrite Negative (Negative); Urine Protein Negative (Negative); Urine Specific Gravity 1.004 (1.010-1.030); Urine Urobilinogen Negative (Negative)
[2019-11-21 02:33] LABS: Urine Bacteria Absent (Absent); Urine Red Blood Cell Trace(0-2/hpf) (Absent); Urine Squamous Epithelial Cell Present (Absent); Urine White Blood Cell Trace(0-5/hpf) (Absent)
[2019-11-21 02:57] VITALS: BP 130/80
== END 2019-11-21 02:57 | disposition home or self-care (01) ==
LOC: ED 00:19
DX: O26.892 Other specified pregnancy related conditions, second trimester (principal); R10.2 Pelvic and perineal pain; Z3A.15 15 weeks gestation of pregnancy; Z90.89 Acquired absence of other organs; Z88.1 Allergy status to other antibiotic agents
CPT/HCPCS: 81003; 81015; 87086; 99282

== ENCOUNTER 2019-12-20 13:28 | Emergency (ER) | payer OTHER ==
--- OUTSIDE RECORDS SUMMARY | 2019-12-20 14:38 | XMS REPORT | Continuity of Care Document ---
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 Problems Description No Information Available Social History Type Date Description Comments Sex Unknown Tobacco Use Start: Unknown Patient has never smoked Smoking Status Reviewed: 12/06/19 Patient has never smoked Allergies, Adverse Reactions, Alerts Active Allergies Reaction Severity Comments Date Honey Hives 05/10/2019 Raw Almonds And Hazelnuts 05/10/2019 Vancomycin 09/17/2019 Medications Active Medications SIG Qnty Indications Ordering Provider Date Epinephrine Use as directed 1units Miriam Bruno MD 05/10/2019 0.3mg/0.3ML Solution Auto-Inject 1 by mouth every Unknown Tablets day Iron Slow Release 1 po daily Unknown 140(45Fe) mg Tablets ER Immunizations Description No Information Available Vital Signs Date Vital Result Comment 12/06/2019 10:50am Height 62 inches 5'2" Weight 267.00 lb Heart Rate 104 /min BP Systolic 128 mmHg BP Diastolic 70 mmHg O2 % BldC Oximetry 99 % BMI (Body Mass Index) 48.8 kg/m2 09/17/2019 12:19pm Height 62 inches 5'2" Weight 259.00 lb Heart Rate 100 /min BP Systolic 126 mmHg BP Diastolic 78 mmHg O2 % BldC Oximetry 97 % BMI (Body Mass Index) 47.4 kg/m2 Results Test Acquired Date Facility Test Result H/L Range Note Urinalysis Profile 11/21/2019 [facility] Urine Color Straw [address] [place] [address] [phone] Urine Appearance Cloudy Urine Specific Bledsoe 1.004 Low 1.010-1.030 Urine pH 6.0 Normal 5-9 Urine Urobilinogen Negative Negative Urine Ketones Negative Negative Urine Protein Negative Negative Urine Leukocytes Trace Abnormal Negative Urine Blood Negative Negative Urine Nitrite Negative Negative Urine Bilirubin Negative Negative Urine Glucose Negative Negative Urine White Blood Cell Trace(0-5/hpf) Absent Urine Red Blood Cell Trace(0-2/hpf) Absent Urine Bacteria Absent Absent Urine Squamous Epithelial Cell Present Abnormal Absent Urine Culture And 11/21/2019 [facility] Urine SEE RESULT [address] [place] [address] [phone] CBC Auto Diff 10/07/2019 [facility] White Blood 13.8 High 3.5- [address] Count 10^3/uL 0.8 [place] [address] [phone] Red Blood Count 4.68 10^6/uL Normal 3.70-4.87 Hemoglobin 13.7 g/dL Normal 12.0-16.0 Hematocrit 41 % Normal 35-47 Mean Corpuscular Volume 87 fL Normal 80-97 Mean Corpuscular Hemoglobin 29 pg Normal 27-31 Mean Corpuscular HGB Conc 34 g/dL Normal 31-36 Red Cell Distribution Width 14 % Normal 10-15 Platelet Count 375 10^3/uL Normal 150-450 Mean Platelet Volume 8.0 fL Normal 7.4-10.4 Abs Neutrophils 10.0 10^3/uL High 1.5-7.7 Abs Lymphocytes 2.4 10^3/uL Normal 1.0-4.8 Abs Monocytes 1.1 10^3/uL High 0-0.8 Abs Eosinophils 0.2 10^3/uL Normal 0-0.6 Abs Basophils 0.1 10^3/uL Normal 0-0.2 Abs Nucleated RBC 0.0 10^3/uL Granulocyte % 72.4 % Lymphocyte % 17.7 % Monocyte % 7.9 % Eosinophil % 1.1 % Basophil % 0.9 % Nucleated Red Blood Cells % 0.0 Laboratory test 10/07/2019 [facility] Lactic Acid 1.5 mmol/L Normal 0.5-2.0 [address] [place] [address] [phone] Comp Metabolic 10/07/2019 [facility] Sodium 133 mmol/L Low 135 -[address] [place] [address] [phone] Potassium 3.9 mmol/L Normal 3.5-5.0 Chloride 100 mmol/L Low 101-111 Co2 Carbon Dioxide 25 mmol/L Normal 22-32 Anion Gap 8 mmol/L Normal 2-11 Glucose 95 mg/dL Normal 70-100 Blood Urea Nitrogen 10 mg/dL Normal 6-24 Creatinine 0.71 mg/dL Normal 0.51-0.95 BUN/Creatinine Ratio 14.1 Normal 8-20 Calcium 9.4 mg/dL Normal 8.6-10.3 Total Protein 7.2 g/dL Normal 6.4-8.9 Albumin 4.0 g/dL Normal 3.2-5.2 Globulin 3.2 g/dL Normal 2-4 Albumin/Globulin Ratio 1.3 Normal 1-3 Total Bilirubin 0.20 mg/dL Normal 0.2-1.0 Alkaline Phosphatase 66 U/L Normal 34-104 Alt 11 U/L Normal 7-52 Ast 10 U/L Low 13-39 Egfr Non- 93.7 >60 Egfr 113.4 >60 3 Laboratory test 10/07/2019 [facility] Lipase 15 U/L Normal 11.0-82.[address] [place] [address] [phone] C Reactive Protein 17.11 mg/L High <8.01 HCG 83378.00 mIU/mL 4 Urinalysis Profile 10/07/2019 [facility] Urine Color Yellow [address] [place] [address] [phone] Urine Appearance Cloudy Urine Specific Bledsoe 1.021 Normal 1.010-1.030 Urine pH 5.0 Normal 5-9 Urine Urobilinogen Negative Negative Urine Ketones Trace Abnormal Negative Urine Protein Negative Negative Urine Leukocytes Trace Abnormal Negative Urine Blood Negative Negative * * Abnormal Negative 5 Urine Nitrite Negative Negative Urine Bilirubin Negative Negative Urine Glucose Negative Negative Urine White Blood Cell Trace(0-5/hpf) Absent Urine Red Blood Cell Trace(0-2/hpf) Absent Urine Bacteria Absent Absent Urine Squamous Epithelial Cell Present Abnormal Absent Urine Culture And 10/07/2019 [facility] Urine Culture SEE RESULT [address] [place] [address] [phone] Type & Screen 09/06/2019 [facility] Patient Blood A Positive [address] [place] [address] [phone] Antibody Screen NEGATIVE Laboratory test 09/06/2019 [facility] Lactic Acid 1.0 mmol/L Normal 0.5-2.0 [address] [place] [address] [phone] CBC Auto Diff 09/06/2019 [facility] White Blood 16.3 High 3.5- 10.[address] Count 10^3/[place] [address] [phone] Red Blood Count 4.76 10^6/uL Normal 3.70-4.87 Hemoglobin 13.7 g/dL Normal 12.0-16.0 Hematocrit 41 % Normal 35-47 Mean Corpuscular Volume 87 fL Normal 80-97 Mean Corpuscular Hemoglobin 29 pg Normal 27-31 Mean Corpuscular HGB Conc 33 g/dL Normal 31-36 Red Cell Distribution Width 14 % Normal 10-15 Platelet Count 418 10^3/uL Normal 150-450 Mean Platelet Volume 7.7 fL Normal 7.4-10.4 Abs Neutrophils 11.4 10^3/uL High 1.5-7.7 Abs Lymphocytes 3.3 10^3/uL Normal 1.0-4.8 Abs Monocytes 1.3 10^3/uL High 0-0.8 Abs Eosinophils 0.2 10^3/uL Normal 0-0.6 Abs Basophils 0.1 10^3/uL Normal 0-0.2 Abs Nucleated RBC 0.0 10^3/uL Granulocyte % 69.8 % Lymphocyte % 20.5 % Monocyte % 8.0 % Eosinophil % 1.1 % Basophil % 0.6 % Nucleated Red Blood Cells % 0.0 Laboratory test 09/06/2019 [facility] C Reactive 13.47 mg/L High <8.[address] [place] [address] [phone] Troponin-I (TnI) 0.00 ng/mL <0.03 9 Comp Metabolic 09/06/2019 [facility] Sodium 136 mmol/L Normal 135-[address] [place] [address] [phone] Potassium 3.8 mmol/L Normal 3.5-5.0 Chloride 104 mmol/L Normal 101-111 Co2 Carbon Dioxide 25 mmol/L Normal 22-32 Anion Gap 7 mmol/L Normal 2-11 Glucose 99 mg/dL Normal 70-100 Blood Urea Nitrogen 13 mg/dL Normal 6-24 Creatinine 0.78 mg/dL Normal 0.51-0.95 BUN/Creatinine Ratio 16.7 Normal 8-20 Calcium 9.4 mg/dL Normal 8.6-10.3 Total Protein 7.2 g/dL Normal 6.4-8.9 Albumin 4.0 g/dL Normal 3.2-5.2 Globulin 3.2 g/dL Normal 2-4 Albumin/Globulin Ratio 1.3 Normal 1-3 Total Bilirubin 0.20 mg/dL Normal 0.2-1.0 Alkaline Phosphatase 64 U/L Normal 34-104 Alt 15 U/L Normal 7-52 Ast 11 U/L Low 13-39 Egfr Non- 84.0 >60 Egfr 101.7 >60 10 Laboratory test 09/06/2019 [facility] HCG 68.[address] mIU/[place] [address] [phone] Laboratory test 09/06/2019 [facility] TSH 3.50 Normal 0.34- 5.[address] (Thyroid mcIU/[place] [address] Stim Horm) [phone] Urine Culture 06/29/2019 [facility] Urine SEE RESULT 12, And [address] Culture BELOW 13 Sensitivities [place], [place] [address] [phone] Poc Urinalysis 06/29/2019 [facility] Poc Negative Negative [address] Glucose, [place] [address] Urine [phone] Poc Bilirubin, Urine Negative Negative Poc Ketone, Urine Negative Negative Poc Specific Bledsoe, Urine 1.025 Normal 1.010-1.030 Poc Blood, Urine Trace-intact Abnormal Negative Poc pH, Urine 7.5 Normal 5-9 Poc Protein, Urine Trace Abnormal Negative Poc Urobilinogen, Urine 0.2 Negative Poc Nitrite, Urine Negative Negative Poc Leukocytes, Urine Trace Abnormal Negative Poc Color, Urine Yellow Poc Clarity, Urine Clear 14 Laboratory test 06/29/2019 [facility] Culture Genital & SEE RESULT [address] [place] [address] [phone] 1 SEE RESULT BELOW Name: FRANCISCA [place] : [address]: Nuha Brumfield MD Acct: [id number] Unit: [id number] AGE: 34 Location: ED Re11/21/19 SEX: F Status: DEP ER SPEC: [id number] RENZO: 11/21/[address]: Deshaun GRANADOS REQ: [id number] RECD: 11/21/19 STATUS: ISAIAH SINGLETON DR: [facility] Miriam Bruno MD _ SOURCE: URINE SPDESC: ORDERED: Urine Culture Procedure Result Reported Site Urine Culture Final 11/22/19- 1035 ML No growth of clinically significant organisms * ML - Main Lab . END OF REPORT DEPARTMENT OF PATHOLOGY, [address] [place] [address] Swapnil Lozoya M.D. Director [facility] # [id number] [address] [facility] Severe Sepsis and Septic Shock Management Bundle Measure requires all lactic acids initially measuring >2.0 mmol/L be repeated. 3 Because ethnic data is not always readily available, this report includes an eGFR for both -Americans and non- Americans. The National Kidney Disease Education Program (NKDEP) does not endorse the use of the MDRD equation for patients that are not between the ages of 18 and 70, are , have extremes of body size, muscle mass, or nutritional status, or are non- or non-. According to the National Kidney Foundation, irrespective of diagnosis, the stage of the disease is based on the level of kidney function: Stage Description GFR(mL/min/1.73 m(2)) 1 Kidney damage with normal or decreased GFR 90 2 Kidney damage with mild decrease in GFR 60-89 3 Moderate decrease in GFR 30-59 4 Severe decrease in GFR 15-29 5 Kidney failure <15 (or dialysis) 4 <5.0 Negative 5.0 - 25.0 Indeterminate (Repeat testing recommended after 72 hours) >25.0 Positive Perimenopausal women can display HCG levels of up to 20 mIU/mL 5 *Ascorbic acid is present which may interfere with detection of blood. 6 SEE RESULT BELOW Name: INÉSFRANCISCA S : [address]: Nick Pérez MD Acct: [id number] Unit: [id number] AGE: 34 Location: ED Re10/07/19 SEX: F Status: REG ER SPEC: [id number] RENZO: 10/07/19-1204 [facility] DR: Nick Pérez MD REQ: [id number] RECD: 10/07/19-3 STATUS: ISAIAH SINGLETON DR: Miriam Bruno MD _ SOURCE: URINE SPDESC: ORDERED: Urine Culture Procedure Result Reported Site Urine Culture Final 10/08/19- 1343 ML No growth of clinically significant organisms * ML - Main Lab . END OF REPORT DEPARTMENT OF PATHOLOGY, [address] [place] [address] Swapnil Lozoya M.D. Director [facility] # [id number] 7 SOB PER PT 8 [place] Severe Sepsis and Septic Shock Management Bundle Measure requires all lactic acids initially measuring >2.0 mmol/L be repeated. 9 Result TnIDx:0.06 Called to [id number] at: 19:12:30 by:KIRAN Read back by: [id number] Corrected result! Wrong result was 0.06. Verbal to [id number] by KIRAN at 194 on 09/06/19. Results read back accurately. CORRECTED REPORT --- Corrected on 09/06/191940 --- Troponin I previously reported as: 0.06 *C ng/mL Result TnIDx:0.06 Called to [id number] at: 19:12:30 by:KIRAN Read back by: BYRON Troponin-I testing on Plasma Separator Tubes (PST) has a known false positive rate of 0.20-0.40%. All positive troponins reflex immediately to secondary confirmatory testing. Using the AlphaSmart 800 Access Immunoassay systems, the 99th percentile upper reference limit was demonstrated to be < 0.03 ng/mL. 10 Because ethnic data is not always readily available, this report includes an eGFR for both -Americans and non- Americans. The National Kidney Disease Education Program (NKDEP) does not endorse the use of the MDRD equation for patients that are not between the ages of 18 and 70, are , have extremes of body size, muscle mass, or nutritional status, or are non- or non-. According to the National Kidney Foundation, irrespective of diagnosis, the stage of the disease is based on the level of kidney function: Stage Description GFR(mL/min/1.73 m(2)) 1 Kidney damage with normal or decreased GFR 90 2 Kidney damage with mild decrease in GFR 60-89 3 Moderate decrease in GFR 30-59 4 Severe decrease in GFR 15-29 5 Kidney failure <15 (or dialysis) 11 <5.0 Negative 5.0 - 25.0 Indeterminate (Repeat testing recommended after 72 hours) >25.0 Positive Perimenopausal women can display HCG levels of up to 20 mIU/mL 12 [id number] 13 SEE RESULT BELOW Name: FRANCISCA THOMAS : [address]: Anamaria Andrews MD Acct: [id number] Unit: [id number] AGE: 34 Location: [facility] Re06/29/19 SEX: F Status: DEP ER SPEC: [id number] RENZO: 06/29/[address] [facility] [address]: Anamaria Andrews MD REQ: [id number] RECD: 06/30/19 STATUS: COMP [facility] DR: Miriam Bruno MD _ SOURCE: URINE SPDESC: ORDERED: Urine Culture COMMENTS: [id number] Procedure Result Reported Site Urine Culture Final 07/01/19- 1322 ML No Growth (<1,000 CFU/mL) * ML - Main Lab . END OF REPORT DEPARTMENT OF PATHOLOGY, [address] [place] [address] Swapnil Lozoya M.D. Director [facility] # [id number] 14 [employer]: [id number] 15 SEE RESULT BELOW Name: FRANCISCA THOMAS : [address]: Anamaria Andrews MD Acct: [id number] Unit: [id number] AGE: 34 Location: [facility] Re06/29/19 SEX: F Status: DEP ER SPEC: [id number] RENZO: 06/29/19 [facility] [address]: Anamaria Andrews MD REQ: [id number] RECD: 06/30/19 STATUS: ISAIAH SINGLETON DR: Miriam Bruno MD _ SOURCE: [facility]: ORDERED: Genital Culture Procedure Result Reported Site Genital Culture Final 07/02/19- 825 ML Organism 1 NORMAL KEVIN Quantity 2+ Routine genital cultures do not include selective agar for Neisseria gonorrhoeae. Molecular testing offers better test sensitivity and therefore is the preferred test methodology for identifying this organism. * ML - Main Lab . END OF REPORT DEPARTMENT OF PATHOLOGY, [address] [place] [address] Swapnil Lozoya M.D. 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) Office Visit 09/17/2019 Pulmonology And Cat Levy, G47.9 Sleep disorder, 1:00p [facility] MD jessica Blunt G47.00 Insomnia, unspecified Assessments Date Code Description Provider 12/06/2019 G47.33 Obstructive sleep apnea (adult) (pediatric) Francisca Messer NP 11/08/2019 G47.33 Obstructive sleep apnea (adult) (pediatric) Cat Levy MD 10/20/2019 G47.9 Sleep disorder, unspecified Cat Levy MD 09/17/2019 G47.9 Sleep disorder, unspecified Cat eLvy MD 09/17/2019 G47.00 Insomnia, unspecified Cat Levy MD Plan of Treatment 12/06/2019 - Francisca Messer NPG47.33 Obstructive sleep apnea (adult) ( pediatric)New Orders:[facility], Ordered: 12/06/19Follow up:2 monthsRecommendations:We will order a pressure change through your homecare company. If you have difficulty with the higher starting pressure, use the ramp button to temporarily lower it. If you have difficulty with your equipment, or need to replace your mask or hoses, please contact your homecare agency, [facility] . If you have any further questions, please call the Sleep Disorder Center at [phone] If you have any sleepiness while driving you MUST avoid operating a vehicle or machinery.If you feel tired while driving insole tack puller hand and take a nap or switch drivers. If you know you are sleepy and need to go somewhere, arrange for a ride or use public transportation. It is very important tonot risk your safety or the safety of others. Functional Status Description No Information Available Mental Status Description No Information Available Referrals Description No Information Available
--- OUTSIDE RECORDS SUMMARY | 2019-12-20 14:38 | XMS REPORT | Continuity of Care Document ---
:1985 External Reference #:[id number] Author Name Francisca Messer NP (transmitted by agent of provider Lesley Stubbs) Address [address], [address] [place] [address] Care Team Providers Name Role Phone Miriam Bruno MD - Internal Medicine Care Team Information Messenger Floorperson [phone] Problems Description No Information Available Social History [...] Result H/L Range Note Urinalysis Profile 11/21/2019 [facility] Urine Color Straw [address] [place] [address] [phone] Urine Appearance Cloudy Urine Specific [place] 1.004 Low 1.010-1.030 Urine pH 6.0 Normal [...] Present Abnormal Absent Urine Culture And 11/21/2019 [facility] Urine SEE RESULT [address] [place] [place] [address] [phone] CBC Auto Diff 10/07/2019 [facility] White Blood 13.8 High 3.5- [address] Count 10^3/uL 0.8 [place] [address] [phone] Red Blood Count 4.68 10^6/uL Normal 3.70-4.87 [...] Blood Cells % 0.0 Laboratory test 10/07/2019 [facility] Lactic Acid 1.5 mmol/L Normal 0.5-2.0 [address] [place] [address] [phone] Comp Metabolic 10/07/2019 [facility] Sodium 133 mmol/L Low 135 -145 Panel [address] [place] [address] [phone] Potassium 3.9 mmol/L Normal 3.5-5.0 Chloride 100 [...] Egfr 113.4 >60 3 Laboratory test 10/07/2019 [facility] Lipase 15 U/L Normal 11.0-82.0 finding [address] [place] [address] [phone] C Reactive Protein 17.11 mg/L High <8.01 HCG 65202.00 mIU/mL 4 Urinalysis Profile 10/07/2019 [facility] Urine Color Yellow [address] [place] [address] [phone] Urine Appearance Cloudy Urine Specific [place] 1.021 Normal 1.010-1.030 Urine pH 5.0 Normal [...] Present Abnormal Absent Urine Culture And 10/07/2019 [facility] Urine Culture SEE RESULT [address] [place] [address] [phone] Type & Screen 09/06/2019 [facility] Patient Blood A Positive [address] [place] [address] [phone] Antibody Screen NEGATIVE Laboratory test 09/06/2019 [facility] Lactic Acid 1.0 mmol/L Normal 0.5-2.[address] [place] [address] [phone] CBC Auto Diff 09/06/2019 [facility] White Blood 16.3 High 3.5- 10.[address] Count 10^3/uL [place] [id number] [phone] Red Blood Count 4.76 10^6/uL Normal 3.70-4.87 [...] Blood Cells % 0.0 Laboratory test 09/06/2019 [facility] C Reactive 13.47 mg/L High <8.[address] [place] [address] [phone] Troponin-I (TnI) 0.00 ng/mL <0.03 9 Comp Metabolic 09/06/2019 [facility] Sodium 136 mmol/L Normal 135-[address] [place] [address] [phone] Potassium 3.8 mmol/L Normal 3.5-5.0 Chloride 104 [...] Egfr 101.7 >60 10 Laboratory test 09/06/2019 [facility] HCG 68.99 [address] mIU/[place] [address] [phone] Laboratory test 09/06/2019 [facility] TSH 3.50 Normal 0.34- 5.[address] (Thyroid mcIU/[place] [address] Stim Horm) [phone] Urine Culture 06/29/2019 [facility] Urine SEE RESULT 12, And [address] Culture BELOW 13 [place] [address] [phone] Poc Urinalysis 06/29/2019 [facility] Poc Negative Negative [address] Glucose, [place] [address] Urine [phone] Poc Bilirubin, Urine Negative Negative Poc Ketone, Urine Negative Negative Poc Specific [place], Urine 1.025 Normal 1.010-1.030 Poc Blood, Urine Trace-intact Abnormal Negative Poc pH, Urine 7.5 Normal 5-9 Poc Protein, Urine Trace Abnormal Negative Poc Urobilinogen, Urine 0.2 Negative Poc Nitrite, Urine Negative Negative Poc Leukocytes, Urine Trace Abnormal Negative Poc Color, Urine Yellow Poc Clarity, Urine Clear 14 Laboratory test 06/29/2019 [facility] Culture Genital & SEE RESULT [address] [place] [address] [phone] 1 SEE RESULT BELOW Name: FRANCISCA THOMAS : [address]: Nuha Brumfield MD Acct: [id number] Unit: [id number] AGE: 34 Location: ED Re11/21/19 SEX: F Status: DEP ER SPEC: [id number] RENZO: 11/21/[address]: Deshaun GRANADOS REQ: [id number] RECD: 11/21/19 STATUS: ISAIAH SINGLETON DR: [facility] Miriam Bruno MD _ SOURCE: URINE SPDESC: ORDERED: Urine Culture Procedure Result Reported Site Urine Culture Final 11/22/19- 1035 ML No growth of clinically significant organisms * ML - Main Lab . END OF REPORT DEPARTMENT OF PATHOLOGY, [address] [place] [address] Swapnil Lozoya M.D. Director [facility] # [id number] 2 [facility] Severe Sepsis and Septic Shock Management Bundle [...] of blood. 6 SEE RESULT BELOW Name: FRANCISCA THOMAS : [address]: Nick Pérez MD Acct: [id number] Unit: [id number] AGE: 34 Location: ED Re10/07/19 SEX: F Status: REG ER SPEC: [id number] RENZO: 10/07/19-[address] [facility] [address]: Nick Pérez MD REQ: [id number] RECD: 10/07/19 STATUS: ISAIAH SINGLETON DR: Miriam Bruno MD _ SOURCE: URINE SPDESC: ORDERED: Urine Culture Procedure Result Reported Site Urine Culture Final 10/08/19- 1343 ML No growth of clinically significant organisms * ML - Main Lab . END OF REPORT DEPARTMENT OF PATHOLOGY, [address] [place] [address] Swapnil Lozoya M.D. Director [facility] # [id number] 7 SOB PER PT 8 [place] Severe Sepsis and Septic Shock Management Bundle Measure requires all lactic acids initially measuring >2.0 mmol/L be repeated. 9 Result TnIDx:0.06 Called to [id number] at: 19:12:30 by:[id number] Read back by: [id number] Corrected result! Wrong result was 0.06. Verbal to [id number] by [email or web address] at 1941 on 09/06/19. Results read back accurately. CORRECTED REPORT --- Corrected on 09/06/191940 --- Troponin I previously reported as: 0.06 *C ng/mL Result TnIDx:0.06 Called to [id number] at: 19:12:30 by:[id number] Read back by: [id number] Troponin-I testing on Plasma Separator Tubes (PST) has a known false positive rate of 0.20-0.40%. All positive troponins reflex immediately to secondary confirmatory testing. Using the [facility] 800 Access Immunoassay systems, the 99th percentile [...] levels of up to 20 mIU/mL 12 [id number] 13 SEE RESULT BELOW Name: INÉSFRANCISCA ALFORD : [address]: Anamaria Andrews MD Acct: [id number] Unit: [id number] AGE: 34 Location: [facility] Re06/29/19 SEX: F Status: DEP ER SPEC: [id number] RENZO: 06/29/[address] [facility] [address]: Anamaria Andrews MD REQ: [id number] RECD: 06/30/19 STATUS: ISAIAH SINGLETON DR: Miriam Bruno MD _ SOURCE: URINE SPDESC: ORDERED: Urine Culture COMMENTS: [id number] Procedure Result Reported Site Urine Culture Final 07/01/19- 1322 ML No Growth (<1,000 CFU/mL) * ML - Main Lab . END OF REPORT DEPARTMENT OF PATHOLOGY, [address] [place] [address] Swapnil Lozoya M.D. Director [facility] # [id number] 14 Automatic Developer: [id number] 15 SEE RESULT BELOW Name: FRANCISCA THOMAS : [address]: Anamaria Andrews MD Acct: [id number] Unit: [id number] AGE: 34 Location: [facility] Re06/29/19 SEX: F Status: DEP ER SPEC: [id number] RENZO: 06/29/[address] [facility] [address]: Anamaria Andrews MD REQ: [id number] RECD: 06/30/19 STATUS: ISAIAH [facility] DR: Miriam Bruno MD _ S[facility]: ORDERED: Genital Culture Procedure Result Reported Site Genital Culture Final 07/02/19- 0826 ML Organism 1 NORMAL KEVIN Quantity 2+ Routine genital cultures do not include selective agar for Neisseria gonorrhoeae. Molecular testing offers better test sensitivity and therefore is the preferred test methodology for identifying this organism. * - Main Lab . END OF REPORT DEPARTMENT OF PATHOLOGY, [address] [place] [address] Swapnil Lozoya M.D. Director [facility] # [id number] Procedures Date Code Description Status 11/08/2019 22765 Polysomnography Sleep Staging 4+ Parameters Completed 10/20/2019 76644 Sleep Study Unattended,HRT Rate,Oxygen Sat,Resp Completed Effort/Airflow Medical Devices Description No Information Available Encounters Type Date Location Provider Dx Diagnosis Office Visit 12/06/2019 [facility] Francisca G47.33 Obstructive sleep 11:00a [facility] Messer apnea (adult) [facility] (pediatric) Office Visit 09/17/2019 [facility] Cat Levy G47.9 Sleep disorder, 1:00p [facility] G47.00 Insomnia, unspecified Assessments Date Code Description Provider 12/06/2019 G47.33 Obstructive sleep apnea (adult) (pediatric) Francisca Messer NP 11/08/2019 G47.33 Obstructive sleep apnea (adult) (pediatric) Cat Levy MD 10/20/2019 G47.9 Sleep disorder, unspecified Cat Levy MD 09/17/2019 G47.9 Sleep disorder, unspecified Cat Levy MD 09/17/2019 G47.00 Insomnia, unspecified Cat Levy MD Plan of Treatment Future Appointment(s):02/06/2020 1:00 pm - Francisca Messer NP at [facility]12/06/2019 - Francisca Messer NPG47.33 Obstructive sleep apnea (adult) (pediatric)Follow up:2 monthsRecommendations:We will order a pressure change through your homecare company. If you have difficulty with the higher starting pressure, use the ramp button to temporarily lower it. If you have difficulty with your equipment, or need to replace your mask or hoses, please contact your homecare agency, [employer] [facility] . 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 If you know you are sleepy and need to go somewhere, arrange for a ride or use public transportation. It is very important tonot risk your safety or the safety of others. Functional Status Description No Information Available Mental Status Description No Information Available Referrals Description No Information Available
--- OUTSIDE RECORDS SUMMARY | 2019-12-20 14:38 | XMS REPORT | Continuity of Care Document ---
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 Problems Description No Information Available Social History Type Date Description Comments Sex Unknown Tobacco Use Start: Unknown Patient has never smoked Smoking Status Reviewed: 09/17/19 Patient has never smoked Allergies, Adverse Reactions, [...] Available Vital Signs Date Vital Result Comment 09/17/2019 12:19pm Height 62 inches 5'2" Weight 259.00 lb Heart Rate 100 /min BP Systolic 126 mmHg BP Diastolic 78 mmHg O2 % BldC Oximetry 97 % BMI (Body Mass Index) 47.4 kg/m2 05/10/2019 3:17pm Height 62 inches 5'2" Weight 259.00 lb Heart Rate 102 /min BP Systolic Sitting 130 mmHg L arm manual bp BP Diastolic Sitting 80 mmHg L arm manual bp Body Temperature 99.8 F O2 % BldC Oximetry 96 % BMI (Body Mass Index) 47.4 kg/m2 Results Test Acquired Date Facility Test Result H/L Range Note Urinalysis Profile 11/21/2019 [facility] Urine Color Straw [address] [place] [address] [phone] Urine Appearance Cloudy Urine Specific [place] 1.004 Low 1.010-1.030 Urine pH 6.0 Normal [...] Present Abnormal Absent Urine Culture And 11/21/2019 [facility] Urine SEE RESULT [address] [place] [address] [phone] CBC Auto Diff 10/07/2019 [facility] White Blood 13.8 High 3.5- [address] Count 10^3/uL 0.8 [place] [address] [phone] Red Blood Count 4.68 10^6/uL Normal 3.70-4.87 [...] Blood Cells % 0.0 Laboratory test 10/07/2019 [facility] Lactic Acid 1.5 mmol/L Normal 0.5-2.0 [address] [place] [address] [phone] Comp Metabolic 10/07/2019 [facility] Sodium 133 mmol/L Low 135 -145 Panel [address] [place] [address] [phone] Potassium 3.9 mmol/L Normal 3.5-5.0 Chloride 100 [...] Egfr 113.4 >60 3 Laboratory test 10/07/2019 [facility] Lipase 15 U/L Normal 11.0-82.0 finding [address] [place] [address] [phone] C Reactive Protein 17.11 mg/L High <8.01 HCG 23226.00 mIU/mL 4 Urinalysis Profile 10/07/2019 [facility] Urine Color Yellow [address] [place] [address] [phone] Urine Appearance Cloudy Urine Specific [place] 1.021 Normal 1.010-1.030 Urine pH 5.0 Normal [...] Present Abnormal Absent Urine Culture And 10/07/2019 [facility] Urine Culture SEE RESULT [address] [place] [address] [phone] Type & Screen 09/06/2019 [facility] Patient Blood A Positive [address] [place] [address] [phone] Antibody Screen NEGATIVE Laboratory test 09/06/2019 [facility] Lactic Acid 1.0 mmol/L Normal 0.5-2.0 [address] [place] [address] [phone] CBC Auto Diff 09/06/2019 [facility] White Blood 16.3 High 3.5- 10.[address] Count 10^3/[place] [address] [phone] Red Blood Count 4.76 10^6/uL Normal 3.70-4.87 [...] Blood Cells % 0.0 Laboratory test 09/06/2019 [facility] C Reactive 13.47 mg/L High <8.[address] [place] [address] [phone] Troponin-I (TnI) 0.00 ng/mL <0.03 9 Comp Metabolic 09/06/2019 [facility] Sodium 136 mmol/L Normal 135-[address] [place] [address] [phone] Potassium 3.8 mmol/L Normal 3.5-5.0 Chloride 104 [...] Egfr 101.7 >60 10 Laboratory test 09/06/2019 [facility] HCG 68.99 [address] mIU/[place] [address] [phone] Laboratory test 09/06/2019 [facility] TSH 3.50 Normal 0.34- 5.[address] (Thyroid mcIU/[place] [address] Stim Horm) [phone] Urine Culture 06/29/2019 [facility] Urine SEE RESULT 12, And [address] Culture BELOW 13 [place] [address] [phone] Poc Urinalysis 06/29/2019 [facility] Poc Negative Negative [address] Glucose, [place] [address] Urine [phone] Poc Bilirubin, Urine Negative Negative Poc Ketone, Urine Negative Negative Poc Specific [place], Urine 1.025 Normal 1.010-1.030 Poc Blood, Urine Trace-intact Abnormal Negative Poc pH, Urine 7.5 Normal 5-9 Poc Protein, Urine Trace Abnormal Negative Poc Urobilinogen, Urine 0.2 Negative Poc Nitrite, Urine Negative Negative Poc Leukocytes, Urine Trace Abnormal Negative Poc Color, Urine Yellow Poc Clarity, Urine Clear 14 Laboratory test 06/29/2019 [facility] Culture Genital & SEE RESULT [address] [place] [address] [phone] 1 SEE RESULT BELOW Name: FRANCISCA THOMAS : [address]: Nuha Brumfield MD Acct: [id number] Unit: [id number] AGE: 34 Location: ED Re11/21/19 SEX: F Status: DEP ER SPEC: [id number] RENZO: 11/21/[address]: Deshaun GRANADOS REQ: [id number] RECD: 11/21/19 STATUS: ISAIAH SINGLETON DR: [facility] Miriam Bruno MD _ SOURCE: URINE SPDESC: ORDERED: Urine Culture Procedure Result Reported Site Urine Culture Final 11/22/19- 1035 ML No growth of clinically significant organisms * ML - Main Lab . END OF REPORT DEPARTMENT OF PATHOLOGY, [address] [place] [address] Swapnil Lozoya M.D. Director [facility] # [id number] 2 [facility] Severe Sepsis and Septic Shock Management Bundle [...] [address]: Nick Pérez MD Acct: [id number] Unit: [id number] AGE: 34 Location: ED Re10/07/19 SEX: F Status: REG ER SPEC: [id number] RENZO: 10/07/19-1204 [facility] DR: Nick Pérez MD REQ: [id number] RECD: 10/07/19-1258 STATUS: COMP [facility] DR: Miriam Bruno MD _ SOURCE: URINE SPDESC: ORDERED: Urine Culture Procedure Result Reported Site Urine Culture Final 10/08/19- 1343 ML No growth of clinically significant organisms * ML - Main Lab . END OF REPORT DEPARTMENT OF PATHOLOGY, [address] [place] [address] Swapnil Lozoya M.D. Director [facility] # [id number] 7 SOB PER PT 8 [place] Severe Sepsis and Septic Shock Management Bundle Measure requires all lactic acids initially measuring >2.0 mmol/L be repeated. 9 Result TnIDx:0.06 Called to [id number] at: 19:12:30 by:[id number] Read back by: [id number] Corrected result! Wrong result was 0.06. Verbal to [id number] by [id number] at 194 on 09/06/19. Results read back accurately. CORRECTED REPORT --- Corrected on 09/06/191940 --- Troponin I previously reported as: 0.06 *C ng/mL Result TnIDx:0.06 Called to [id number] at: 19:12:30 by:[id number] Read back by: [id number] Troponin-I testing on Plasma Separator Tubes (PST) has a known false positive rate of 0.20-0.40%. All positive troponins reflex immediately to secondary confirmatory testing. Using the [employer] 800 Access Immunoassay systems, the 99th percentile [...] levels of up to 20 mIU/mL 12 [id number] 13 SEE RESULT BELOW Name: INÉSFRANCISCA S : [address]: Anamaria Andrews MD Acct: [id number] Unit: [id number] AGE: 34 Location: [facility] Re06/29/19 SEX: F Status: DEP ER SPEC: [id number] RENZO: 06/29/19-2226 [facility] DR: Anamaria Andrews MD REQ: [id number] RECD: 06/30/19-1329 STATUS: ISAIAH SINGLETON DR: Miriam Bruno MD _ SOURCE: URINE SPDESC: ORDERED: Urine Culture COMMENTS: [id number] Procedure Result Reported Site Urine Culture Final 07/01/19- 1322 ML No Growth (<1,000 CFU/mL) * ML - Main Lab . END OF REPORT DEPARTMENT OF PATHOLOGY, [address] [place] [address] Swapnil Lozoya M.D. Director [facility] # [id number] 14 Licensed Optician: [id number] 15 SEE RESULT BELOW Name: FRANCISCA THOMAS : [address]: Anamaria Andrews MD Acct: [id number] Unit: [id number] AGE: 34 Location: [facility] Re06/29/19 SEX: F Status: DEP ER SPEC: [id number] RENZO: 06/29/19 [facility] [address]: Anamaria Andrews MD REQ: [id number] RECD: 06/30/19 STATUS: ISAIAH SINGLETON DR: Miriam Bruno MD _ SOURCE[facility]: ORDERED: Genital Culture Procedure Result Reported Site Genital Culture Final 07/02/19- 08 ML Organism 1 NORMAL KEVIN Quantity 2+ Routine genital cultures do not include selective agar for Neisseria gonorrhoeae. Molecular testing offers better test sensitivity and therefore is the preferred test methodology for identifying this organism. * ML - Main Lab . END OF REPORT DEPARTMENT OF PATHOLOGY, [address] [place] [address] Swapnil Lozoya M.D. Director [facility] # [id number] Procedures Date Code Description Status 11/08/2019 00017 Polysomnography Sleep Staging 4+ Parameters Completed 10/20/2019 75103 Sleep Study Unattended,HRT Rate,Oxygen Sat,Resp Completed Effort/Airflow Medical Devices Description No Information Available Encounters Type Date Location Provider Dx Diagnosis Office Visit 09/17/2019 Pulmonology And Cat Levy, G47.9 Sleep disorder, 1:00p [facility] G47.00 Insomnia, unspecified Assessments Date Code Description Provider 11/08/2019 G47.33 Obstructive sleep apnea (adult) (pediatric) Cat Levy MD 10/20/2019 G47.9 Sleep disorder, unspecified Cat Levy MD 09/17/2019 G47.9 Sleep disorder, unspecified Cat Levy MD 09/17/2019 G47.00 Insomnia, unspecified Cat Levy MD Plan of Treatment 09/17/2019 - Cat Levy MDG47.9 Sleep disorder, unspecifiedFollow up:2 yvjyqL66.00 Insomnia, unspecified Functional Status Description No Information Available Mental Status Description No Information Available Referrals Description No Information Available
--- NOTE | 2019-12-20 15:27 | ED ---
Influenza-Like Illness - HPI Summary HPI Summary: This pt is a 34 Y/O F presenting to [facility] with a CC of a fever that began this while the pt was visiting [facility]. She states that she went to [facility] due to anxiety that she has been dealing with. The pt states that she had a general illness starting on 12/17/2019 with productive cough with white and yell sputum. Her symptoms began to worsen until today. She states that she also had a sore throat that began on 12/18/2019 and was associated with rhinorrhea. She states that she has had increased anxiety during this due to a Hx of miscarriages. She states that she felt a sharp pain in her cervix today prior to her visit to the [facility] clinic. She states that she has increased frequency or urination. She states that she has SOB due to her increased anxiety. Pt denies any erythema of eyes, CP, abdominal pain, N/V, dysuria, hematuria, myalgia, edema, rash, loss of fluid, vaginal discharge, or dizziness. She has no alleviating factors. Her works at [employer] but she states that she has not become in contact with anyone who may have COVID and she denies recent travels. 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 She states that she takes prandial iron. She has a GPA of 4,1,2. She is currently 19 weeks . - History of Current Complaint Chief Complaint: EDUpperRespComplaint Time Seen by Provider: 12/20/19 14:18 Hx Obtained From: Patient Onset/Duration: Sudden Onset, Lasting Days - 3, Still Present, Worse Since - onset Severity: Moderate Associated Signs & Symptoms: Negative - erythema of eyes, CP, abdominal pain, N/ V, dysuria, hematuria, myalgia, edema, rash, loss of fluid, vaginal discharge, or dizziness, Fever - 101 F, Cough - productive, Sore Throat, Nasal Congestion - Allergy/Home Medications Allergies/Adverse Reactions: Allergies Allergy/AdvReac Type Severity Reaction Status Date / Time vancomycin AdvReac Intermediate See Comment Verified 12/20/19 14:43 Home Medications: Home Medications 105/Iron/Folic AC/Dha [Prena1 True Combo Pack] 1 tab PO DAILY 06/29/19 [History Confirmed 12/20/19] Acetaminophen [Tylenol] 325 mg PO Q8H PRN 12/20/19 [History Confirmed 12/20/19] diPHENhydraMINE PO* [Benadryl PO 25 MG TAB*] 25 mg PO Q8H PRN #10 tab 12/20/19 [ Rx] PMH/Surg Hx/FS Hx/Imm Hx Previously Healthy: Yes Endocrine/Hematology History: Denies: Hx Diabetes, Hx Thyroid Disease Cardiovascular History: Denies: Hx Hypertension Respiratory History: Denies: Hx Asthma, Hx Chronic Obstructive Pulmonary Disease (COPD) GI History: Denies: Hx Ulcer - Cancer History Hx Chemotherapy: No Hx Radiation Therapy: No - Surgical History Surgical History: Yes Surgery Procedure, Year, and Place: T&A. appendectomy. D&C - Immunization History Date of Influenza Vaccine: 2018 Immunizations Up to Date: Yes Infectious Disease History: No Infectious Disease History: Denies: Hx Hepatitis, Hx Human Immunodeficiency Virus (HIV), Traveled Outside the [place] in Last 30 Days - Family History Known Family History: Positive: Cardiac Disease - father, Hypertension - father Negative: Diabetes - Social History Occupation: Unemployed Lives: With Family Alcohol Use: None Hx Substance Use: No Substance Use Type: Reports: None Hx Tobacco Use: No Smoking Status (MU): Never Smoked Tobacco Review of Systems Positive: Fever - 101 F, Chills Negative: Erythema Positive: Sore Throat, Nasal Discharge Negative: Chest Pain Positive: Shortness Of Breath - due to anxiety , Cough Positive: Abdominal Pain - cervical. Negative: Vomiting, Nausea Genitourinary: Negative - vaginal discharge Positive: frequency. Negative: dysuria, hematuria Negative: Myalgia, Edema Negative: Rash Neurological/Mental Status: Negative - dizziness Positive: Anxious All Other Systems Reviewed And Are Negative: Yes Physical Exam - Summary Physical Exam Summary: Constitutional: Well-developed, Well-nourished, Alert. (-) Distressed Skin: Warm, Dry HENT: Normocephalic; Atraumatic Eyes: Conjunctiva normal Neck: Musculoskeletal ROM normal neck. (-) JVD, (-) Stridor, (-) Tracheal deviation Cardio: Rhythm regular, rate normal, Heart sounds normal; Intact distal pulses; The pedal pulses are 2+ and symmetric. Radial pulses are 2+ and symmetric. (-) Murmur Pulmonary/Chest wall: Effort normal. (-) Respiratory distress, (-) Wheezes, (-) Rales Abd: Soft, (-) tenderness, (-) Distension, (-) Guarding, (-) Rebound Musculoskeletal: (-) Edema Lymph: (-) Cervical adenopathy Neuro: Alert, Oriented x3 Psych: Mood and affect Normal Triage Information Reviewed: Yes Vital Signs On Initial Exam: Initial Vitals Temp Pulse Resp BP Pulse Ox 98.3 F 104 20 124/80 97 12/20/19 13:32 12/20/19 13:32 12/20/19 13:32 12/20/19 13:32 12/20/19 13:32 Vital Signs Reviewed: Yes Procedures - Sedation Patient Received Moderate/Deep Sedation with Procedure: No Diagnostics - Vital Signs Vital Signs Temp Pulse Resp BP Pulse Ox 12/20/19 13:32 98.3 F 104 20 124/80 97 - Laboratory Result Diagrams: 12/20/19 17:45 12/20/19 17:45 Lab Statement: Any lab studies that have been ordered have been reviewed, and results considered in the medical decision making process. Re-Evaluation - Re-Evaluation First Eval Re-Evaluation Time: 16:25 Change: Unchanged Comment: Pt stated that she wanted a full US and blood work to ensure that her baby was still alive and she had no complications. Flu Symptom Course/Dx - Course Course Of Treatment: This pt is a 34 Y/O F presenting to [facility] with a CC of a fever that began this while the pt was visiting [facility] [address]. She states that she went to [facility] due to anxiety that she has been dealing with. The pt states that she had a general illness starting on 12/17/2019 with productive cough with white and yell sputum. Her symptoms began to worsen until today. She states that she also had a sore throat that began on 12/18/2019 and was associated with rhinorrhea. She states that she has had increased anxiety during this due to a Hx of miscarriages. She states that she felt a sharp pain in her cervix today prior to her visit to the [facility] clinic. She states that she has increased frequency or urination. She states that she has SOB due to her increased anxiety. Her PE found no acute abnormalities. On arrival the pt was placed in a room dedicated to respiratory distress due to COVID-19 issues the pt developed an anxiety attack and demanded to leave the department. The pt was then redirected to a different hospital room and was given a bed. She states that she was disgusted since she does not have COVID and the pt in that room was coughing frequently and she did not want to get COVID. She states that when she tried to leave staff stated that they would have to report to the health department due to a potential COVID release. She will be swabed for COVID-19 as well as influenza A and B. She would not likely take the Tamiflu as she has concerns over taking medications during her . There for she will be discharged home viviana a Dx of URI, suspected covid 2019 virus, second trimester , leukocytosis, and anxiety. 1625 pt requested a full work-up. - Diagnoses Provider Diagnoses: URI (upper respiratory infection), Anxiety, Leukocytosis, Second trimester , Suspected 2019 novel coronavirus infection Discharge ED - Sign-Out/Discharge Documenting (check all that apply): Patient Departure - discharge - Discharge Plan Condition: Good Disposition: HOME Prescriptions: diPHENhydraMINE PO* [Benadryl PO 25 MG TAB*] 25 mg PO Q8H PRN #10 tab PRN Reason: Anxiety Patient Education Materials: Upper Respiratory Infection (ED), Anxiety (ED), Leukocytosis (ED) Forms: COVID-19 Tested & Isolation Referrals: Miriam Bruno MD [Primary Care Provider] - 2 Days [facility] [Outside] - 2 Days Additional Instructions: PLEASE FOLLOW UP WITH YOUR PRIMARY CARE PHYSICIAN IN 1-3 DAYS AND RETURN TO THE EMERGENCY DEPARTMENT FOR ANY NEW OR WORSENING SYMPTOMS. - Attestation Statements Document Initiated by Scribe: Yes Documenting Scribe: Oren Bernal Provider For Whom Scribe is Documenting (Include Credential): Jose Junior MD Scribe Attestation: Oren Rodgers, scribed for Jose Junior MD on 12/20/19 at 1828. Status of Scribe Document: Ready
[2019-12-20 16:17] LABS: Urine Appearance Clear; Urine Bilirubin Negative (Negative); Urine Blood Negative (Negative); Urine Color Yellow; Urine Glucose Negative (Negative); Urine Ketones Negative (Negative); Urine Nitrite Negative (Negative); Urine Protein Negative (Negative); Urine Specific Gravity 1.027 (1.010-1.030); Urine Urobilinogen Negative (Negative)
[2019-12-20 17:58] LABS: Hematocrit 35 % (35-47); Hemoglobin 11.6 g/dL (12.0-16.0); Mean Corpuscular HGB Conc 33 g/dL (31-36); Mean Corpuscular Hemoglobin 29 pg (27-31); Mean Corpuscular Volume 86 fL (80-97); Mean Platelet Volume 8.2 fL (7.4-10.4); Platelet Count 309 10^3/uL (150-450); Red Blood Count 4.04 10^6 /uL (3.70-4.87); Red Cell Distribution Width 14 % (10-15); White Blood Count 14.1 10^3/uL (3.5-10.8)
[2019-12-20 18:14] LABS: Albumin 3.5 g/dL (3.2-5.2); Albumin/Globulin Ratio 1.1 (1-3); BUN/Creatinine Ratio 8.5 (8-20); Calcium 9.8 mg/dL (8.6-10.3); EGFR African American 182.5 (>60); EGFR Non-African American 150.8 (>60); Globulin 3.1 g/dL (2-4); Potassium 3.5 mmol/L (3.5-5.0); Total Bilirubin 0.2 mg/dL (0.2-1.0); Total Protein 6.6 g/dL (6.4-8.9)
[2019-12-20 19:19] LABS: Influenza A Molecular Negative (Negative); Influenza B Molecular Negative (Negative)
[2019-12-20 20:23] VITALS: BP 154/88
== END 2019-12-20 20:15 | disposition home or self-care (01) ==
LOC: ED 13:28
DX: J06.9 Acute upper respiratory infection, unspecified (principal); Z3A.19 19 weeks gestation of pregnancy; Z20.828 Contact with and (suspected) exposure to other viral communicable diseases; R50.9 Fever, unspecified; J02.9 Acute pharyngitis, unspecified; R10.9 Unspecified abdominal pain; F41.9 Anxiety disorder, unspecified; D72.829 Elevated white blood cell count, unspecified
CPT/HCPCS: 36415; 76815; 80053; 81003; 85027; 99283; U0002